=== PATIENT | female | born 1950 | race Hispanic/Latino ===

== ENCOUNTER 2017-12-28 22:43 | Inpatient (IN) | payer MEDICARE, OTHER ==
--- NOTE | 2017-12-28 23:13 | ED PDOC ---
Arrival/HPI - General Chief Complaint: Psychiatric Evaluation Time Seen by Provider: 12/28/17 22:53 Historian: Patient - History of Present Illness Narrative History of Present Illness (Text): 12/28/17 23:13 Falguni Thrasher is a 67 year old female who presents to the Emergency department brought in by EMS status post overdose. As per EMS, patient took approximately 15 tablets of Seroquel 25mg tonight. Patient admits to taking Seroquel tonight 1 hour ago, states she feels depressed. Patient denies any shortness of breath, chest pain, abdominal pain, or any other complaints. Symptom Onset: Gradual Symptom Course: Unchanged Activities at Onset: Light Context: Home Past Medical History - Provider Review Nursing Documentation Reviewed: Yes - Cardiac Hx Pacemaker: No - Neurological Hx Paralysis: No - Hematological/Oncological Hx Blood Transfusions: No Hx Blood Transfusion Reaction: No - Psychiatric Hx Anxiety: Yes Hx Emotional Abuse: No Hx Physical Abuse: No Hx Substance Use: No - Anesthesia Hx Anesthesia Reactions: No Hx Malignant Hyperthermia: No - Suicidal Assessment Feels Threatened In Home Enviroment: No Family/Social History - Physician Review Nursing Documentation Reviewed: Yes Family/Social History: Unknown Family HX Smoking Status: Never Smoked Hx Alcohol Use: Yes (SOCIAL) Frequency of alcohol use: Socially Hx Substance Use: No Allergies/Home Meds Allergies/Adverse Reactions: Allergies No Known Allergies Allergy (Verified 08/21/12 07:09) Home Medications: Home Meds Medication Instructions Recorded Confirmed Clonazepam [Klonopin] 1 mg PO DAILY 08/21/12 12/28/17 Review of Systems - Review of Systems Systems not reviewed;Unavailable: Altered Mental Status Psychiatric: Other (+overdose) Physical Exam Vital Signs Reviewed: Yes Vital Signs Temp Pulse Resp BP Pulse Ox 12/29/17 03:03 94 H 28 H 12/29/17 03:00 129 H 16 96 12/29/17 02:55 123 H 12/29/17 02:20 119 H 14 125/79 95 12/29/17 01:53 140 H 101/62 12/29/17 01:51 140 H 18 101/62 95 12/29/17 00:42 130 H 14 115/69 96 12/29/17 00:41 120 H 16 102/52 L 95 12/29/17 00:40 102 H 112/62 08/03/18 00:39 102 H 15 112/62 94 L 12/29/17 00:29 166 H 20 124/67 95 12/29/17 00:20 167 H 21 113/90 96 12/29/17 00:01 157 H 18 112/59 L 95 12/28/17 23:57 120 H 21 110/53 L 93 L 12/28/17 23:55 120 H 110/53 L 12/28/17 23:48 163 H 20 121/68 95 12/28/17 22:51 98 F 91 H 18 138/74 96 Temperature: Afebrile Blood Pressure: Normal Pulse: Regular Respiratory Rate: Normal Mental Status: Positive for: other (Drowsy but arousable) - Systems Exam Head: Present: Atraumatic, Normocephalic Pupils: Present: PERRL Extroacular Muscles: Present: EOMI Conjunctiva: Present: Normal Mouth: Present: Moist Mucous Membranes Neck: Present: Normal Range of Motion. No: MIDLINE TENDERNESS, Paraspinal Tenderness Respiratory/Chest: Present: Clear to Auscultation, Good Air Exchange. No: Respiratory Distress, Accessory Muscle Use Cardiovascular: Present: Regular Rate and Rhythm Abdomen: No: Tenderness, Distention, Peritoneal Signs Upper Extremity: Present: Normal Inspection. No: Cyanosis, Edema Lower Extremity: Present: Normal Inspection. No: Edema Neurological: Present: CN II-XII Intact Skin: Present: Warm, Dry, Normal Color. No: Rashes Psychiatric: No: Alert (Drowsy but arousable) Medical Decision Making ED Course and Treatment: 12/28/17 23:13 Impression: 67 year old female presents after taking 15 tablets of Seroquel. Plan: -- EKG -- Chest X-ray -- Labs, alcohol level, TSH, cardiac enzymes -- Urinalysis -- IV fluids -- Aspirin -- Reassess and disposition Prior Visits: Notes and results from previous visits were reviewed. Progress Notes: 12/28/17 23:47 Reviewed EKG, sinus tachycardia at 185 bpm. Short ME. Non-specific intraventricular block. ST/T wave changes in precordial leads. 12/29/17 00:[address] Rocha, customer records division supervisor, who is aware and agrees to evaluate pt for ICU admission. 12/29/17 00:03 Spoke with Poison Control, recommend symptomatic treatment. 12/29/17 00:17 Repeat EKG reviewed, sinus tachycardia at [address] depressions in V3-V6. 12/29/17 00:[address] Rocha, present in Emergency department to evaluate pt, states pt can be admitted to the ICU. 12/29/17 00:[address] Bahena, who is aware and agrees with plan. Accepts pt in to her service. Pt will be admitted to ICU for seroquel drug overdose. Request Dr. Light and Dr. Song on consult. 12/29/17 02:00 Chest X-ray reviewed, shows no acute processes. - Critical Care Critical Care Minutes: 30 minutes - Lab Interpretations Lab Results: 12/28/17 23:05 12/29/17 00:05 Lab Results 12/29/17 00:05: Sodium 143, Potassium 3.0 L, Chloride 105, Carbon Dioxide 26, Anion Gap 15, BUN 11, Creatinine 0.6 L, Est GFR ( Amer) > 60, Est GFR ( Non-Af Amer) > 60, Random Glucose 125 H, Calcium 9.4, Magnesium 2.2, Total Bilirubin 1.1, AST 26, ALT 22, Alkaline Phosphatase 71, Lactate Dehydrogenase 553, Total Creatine Kinase 172, Troponin I < 0.01, Total Protein 6.4, Albumin 4.0, Globulin 2.5, Albumin/Globulin Ratio 1.6 12/28/17 23:05: Free T4 1.02, TSH 3rd Generation 2.20 12/28/17 23:05: Alcohol, Quantitative 58 H 12/28/17 23:05: Salicylates < 1 L, Acetaminophen < 10.0 L 12/28/17 23:05: WBC 6.1, RBC 3.95, Hgb 12.3, Hct 36.2, MCV 91.6, MCH 31.1, MCHC 34.0, RDW 12.9, Plt Count 245, MPV 11.0, Gran % 64.5, Lymph % (Auto) 26.8, [place] % (Auto) 8.2 H, Eos % (Auto) 0.2 L, Baso % (Auto) 0.3, Gran # 3.93, Lymph # ( Auto) 1.6, [place] # (Auto) 0.5, Eos # (Auto) 0.0, Baso # (Auto) 0.02 I have reviewed the lab results: Yes - RAD Interpretation Radiology Orders: 12/28/17 23:14 CHEST PORTABLE [RAD] Stat Train Operations Manager: ED Physician - EKG Interpretation Interpreted by ED Physician: Yes Type: 12 lead EKG - Medication Orders Current Medication Orders: Enoxaparin Sodium (Lovenox) 40 mg SC DAILY [facility] PRN Reason: Protocol Last Admin: 12/31/17 10:45 Dose: 40 mg Subcutaneous Administrations Document 12/31/17 10:45 RA (Rec: 12/31/17 10:54 RA [facility] [place]) Injection Site MAR Injection Site Right Abdomen Charges for Administration # of Subcutaneous Administrations 1 Folic Acid (Folic Acid) 1 mg PO DAILY [facility] Last Admin: 12/31/17 10:42 Dose: 1 mg Lorazepam (Ativan) 1 mg IVP TID PRN; Protocol PRN Reason: anxiety/restlessness Last Admin: 12/31/17 22:45 Dose: 1 mg IVP Administration Document 12/31/17 22:45 MJ (Rec: 12/31/17 22:45 MJ [place] [id number]) Charges for Administration # of IVP Administrations 1 Behavioural Document 12/31/17 22:45 MJ (Rec: 12/31/17 22:45 MJ [place] [id number]) Maintenance Maintenance Dose No Nonmedicinal Nonmedicinal Interventions Redirect Therapeutic Communication Behavior Behavior for Medication: Anxiety Metoprolol Tartrate (Lopressor) 12.5 mg PO BRKDIN [facility] Last Admin: 12/31/17 17:58 Dose: 12.5 mg MAR Pulse and Blood Pressure Document 12/31/17 17:58 ID (Rec: 12/31/17 17:58 ID [place] [id number]) Pulse Pulse Rate (60-90) 78 Blood Pressure Blood Pressure (100/60-150/90) 153/84 Multivitamins (Thera Tab) 1 tab PO 0800 [facility] Last Admin: 12/31/17 08:14 Dose: 1 tab Pantoprazole Sodium (Protonix Ec Tab) 40 mg PO 0600 [facility] Last Admin: 12/31/17 06:02 Dose: 40 mg Thiamine HCl (Vitamin B1 Tab) 50 mg PO DAILY [facility] Last Admin: 12/31/17 10:42 Dose: 50 mg Discontinued Medications Aspirin (Aspirin) 325 mg PO ONCE STA Stop: 12/29/17 00:22 Last Admin: 12/29/17 02:00 Dose: 325 mg Chlordiazepoxide (Librium) 75 mg PO STAT STA PRN Reason: Protocol Stop: 12/29/17 05:00 Last Admin: 12/29/17 08:42 Dose: Not Given Non-Admin Reason: Patient Asleep Behavioural Document 12/29/17 08:42 ROLAND (Rec: 12/29/17 08:42 ROLAND [id number]) Nonmedicinal Comment ATIVAN ALREADY GIVEN-PT. ASLEEP. Diltiazem HCl (Cardizem) 10 mg IVP STAT STA Stop: 12/29/17 01:43 Last Admin: 12/29/17 01:53 Dose: 10 mg IVP Administration Document 12/29/17 01:53 JOFartun (Rec: 12/29/17 01:53 JOFartun [id number]) Charges for Administration # of IVP Administrations 1 MAR Pulse and Blood Pressure Document 12/29/17 01:53 JOL (Rec: 12/29/17 01:53 JOL [id number]) Pulse Pulse Rate (60-90) 140 Blood Pressure Blood Pressure (100/60-150/90) 101/62 Sodium Chloride (Sodium Chloride 0.9%) 500 mls @ 1,000 mls/hr IV .Q30M STA Stop: 12/28/17 23:43 Last Admin: 12/28/17 23:47 Dose: 1,000 mls/hr eMAR Start Stop Document 12/28/17 23:47 JOL (Rec: 12/28/17 23:48 JOL [id number]) Intravenous Solution Start Date 12/28/17 Start Time 23:45 End Date 12/29/17 End time 00:15 Total Infusion Time 30 Sodium Chloride (Sodium Chloride 0.9%) 1,000 mls @ 999 mls/hr IV .Q1H1M STA Stop: 12/29/17 01:14 Last Admin: 12/29/17 00:20 Dose: 999 mls/hr eMAR Start Stop Document 12/29/17 00:20 JOL (Rec: 12/29/17 01:55 JOL [id number]) Intravenous Solution Start Date 12/29/17 Start Time 00:20 End Date 12/29/17 End time 01:21 Total Infusion Time 61 diltiaZEM IVPB 100mg in NS (Cardizem 100mg In Ns) 100 mls @ 5 mls/hr IV .Q20H PRN; Protocol; 5 MG/HR PRN Reason: TITRATE PER MD ORDER Last Titration: 12/29/17 05:45 Dose: 0 mg/hr, 0 mls/hr MAR Pulse Rate Document 12/29/17 05:45 JZI (Rec: 12/29/17 08:41 JZI [email or web address]) Pulse Rate Pulse Rate (60-90) 61 Titration Intervention Document 12/29/17 05:45 JZI (Rec: 12/29/17 08:41 JZI [email or web address]) Titration Intake Titration Intake 20 Cumulative Intake 20 Cumulative Intake (Rx) 20 Waste Amount 0 Container Volume 80 Titration Dosing Titration Dose 0 IV Rate 0 Intake/Decrease Paused Cumulative Dose 20 Multivitamins/Vitamin C 10 ml/Thiamine HCl 100 mg/ Folic Acid 1 mg/ Sodium Chloride 1,011.2 mls @ 100 mls/hr IV .Q10H7M ONE Stop: 12/29/17 15:19 Last Admin: 12/29/17 05:42 Dose: 100 mls/hr eMAR Start Stop Document 12/29/17 05:42 JZI (Rec: 12/29/17 05:44 JZI [email or web address]) Intravenous Solution Start Date 12/29/17 Start Time 05:42 End Date 12/29/17 End time 17:42 Total Infusion Time 720 Potassium Chloride (Potassium Chloride 10 Meq/100 Ml) 10 meq in 100 mls @ 50 mls/hr IVPB Q2H [facility] Stop: 12/29/17 11:29 Last Admin: 12/29/17 10:10 Dose: 50 mls/hr eMAR Start Stop Document 12/29/17 10:10 GLI (Rec: 12/29/17 10:10 GLI [id number]) Intravenous Solution Start Date 12/29/17 Start Time 10:10 End Date 12/29/17 Lorazepam (Ativan) 1 mg IVP ONCE ONE PRN Reason: Protocol Stop: 12/29/17 04:55 Last Admin: 12/29/17 04:55 Dose: 1 mg IVP Administration Document 12/29/17 04:55 SUMANTH (Rec: 12/29/17 05:11 SUMANTH [id number]) Charges for Administration # of IVP Administrations 1 Behavioural Document 12/29/17 04:55 SUMANTH (Rec: 12/29/17 05:11 SUMANTH [id number]) Maintenance Maintenance Dose No Nonmedicinal Nonmedicinal Interventions Redirect Therapeutic Communication See nurse's notes Behavior Behavior for Medication: Anxiety Biting/Hitting/Throwing/ Kicking Continuous crying/screaming/ yelling Dangers to self/others Pulling IV lines/tubes/ catheter Re-Assess: Reassess Psych Meds Document 12/29/17 05:25 JDIGNA (Rec: 12/29/17 08:39 JZI [email or web address]) Reassess Psych Med Effective Metoprolol Tartrate (Lopressor) 5 mg IVP STAT STA Stop: 12/29/17 00:32 Last Admin: 12/29/17 00:40 Dose: 5 mg IVP Administration Document 12/29/17 00:40 JOL (Rec: 12/29/17 01:55 JOL [id number]) Charges for Administration # of IVP Administrations 1 MAR Pulse and Blood Pressure Document 12/29/17 00:40 JOL (Rec: 12/29/17 01:55 JOL [id number]) Pulse Pulse Rate (60-90) 102 Blood Pressure Blood Pressure (100/60-150/90) 112/62 Metoprolol Tartrate (Lopressor) 2.5 mg IVP Q6H [facility] Stop: 12/29/17 23:59 Last Admin: 12/29/17 21:27 Dose: MAR Pulse and Blood Pressure Document 12/29/17 21:27 PD (Rec: 12/29/17 21:27 PD [id number]) Pulse Pulse Rate (60-90) 63 Blood Pressure Blood Pressure (100/60-150/90) 114/65 Potassium Chloride (K-Dur 20 Meq Er Tab) 40 meq PO STAT STA Stop: 12/29/17 00:34 Last Admin: 12/29/17 02:00 Dose: 40 meq Potassium Chloride (Potassium Chloride Oral Soln) 40 meq PO STAT STA Stop: 12/29/17 07:26 Potassium Chloride (Potassium Chloride Oral Soln) 40 meq PO STAT STA Stop: 12/29/17 07:26 Last Admin: 12/29/17 08:48 Dose: 40 meq - Scribe Statement The provider has reviewed the documentation as recorded by the Scribe Urvashi Jimenezzon All medical record entries made by the Scribcristiana were at my direction and personally dictated by me. I have reviewed the chart and agree that the record accurately reflects my personal performance of the history, physical exam, medical decision making, and the department course for this patient. I have also personally directed, reviewed, and agree with the discharge instructions and disposition. Disposition/Present on Arrival - Present on Arrival Any Indicators Present on Arrival: No History of DVT/PE: No History of Uncontrolled Diabetes: No Urinary Catheter: No History of Decub. Ulcer: No History Surgical Site Infection Following: None - Disposition Have Diagnosis and Disposition been Completed?: Yes Diagnosis: Drug overdose, Tachycardia Disposition: HOSPITALIZED Disposition Time: 00:40 Patient Plan: Admission Patient Problems: Current Active Problems Problem Status Onset Drug overdose Acute Tachycardia Acute Condition: GUARDED
[2017-12-28] MEDS ORDERED: Sodium Chloride 0.9% 500 ML IV STA (23:14)
[2017-12-28 23:49] LABS: BASO # 0.02 K/mm3 (0.0-2.0); BASO % 0.3 % (0.0-3.0); EOS % 0.2 % (1.5-5.0); GRAN # 3.93 (1.4-6.5); GRAN % 64.5 % (50.0-68.0); HEMOGLOBIN 12.3 g/dL (12.0-16.0); LYMPH # 1.6 (1.2-3.4); LYMPH % 26.8 % (22.0-35.0); MEAN CELL VOLUME 91.6 fl (80.0-105.0); MEAN CORPUSCULAR HEMOGLOBIN 31.1 pg (25.0-35.0); MONO # 0.5 (0.1-0.6); MONO % 8.2 % (1.0-6.0); RBC 3.95 10^6/uL (3.5-6.1); RED CELL DISTRIBUTION WIDTH 12.9 % (11.5-14.5); WHITE BLOOD COUNT 6.1 10^3/ul (4.5-11.0)
[2017-12-28 23:57] LABS: ACETAMINOPHEN < 10.0 ug/ml (10.0-20.0); SALICYLATE < 1 mg/dL (2.0-20.0)
[2017-12-29] MEDS ORDERED: Sodium Chloride 0.9% 1,000 ML IV STA (00:14)
[2017-12-29 00:28] LABS: ALB/GLOB RATIO 1.6 (1.1-1.8); ALT/SGPT 22 U/L (7-56); AST/SGOT 26 U/L (14-36); BLOOD UREA NITROGEN 11 mg/dL (7-21); CALCIUM 9.4 mg/dL (8.4-10.5); GFR AFRICAN-AMERICAN > 60; GFR NON-AFRICAN AMERICAN > 60
[2017-12-29] MEDS ORDERED: Metoprolol 1 mg/ml Inj IVP STA (00:31)
[2017-12-29] MEDS ORDERED: Potassium Chloride 20 mEq ER Tab PO STA (00:33)
[2017-12-29 00:57] LABS: URINE BILIRUBIN NEGATIVE (NEGATIVE); URINE BLOOD NEGATIVE (NEGATIVE); URINE GLUCOSE (UA) NEGATIVE (NEGATIVE); URINE LEUKOCYTE ESTERASE SMALL Leu/uL (NEGATIVE); URINE PROTEIN NEGATIVE mg/dL (<30 mg/dL); URINE UROBILINOGEN 0.2 E.U./dL (<1 E.U./dL)
[2017-12-29 01:01] LABS: URINE APPEARANCE CLEAR (CLEAR); URINE COLOR YELLOW (YELLOW)
[2017-12-29 01:04] LABS: FREE T4 1.02 ng/dL (0.78-2.19)
[2017-12-29 01:09] LABS: URINE RBC 0 - 2 /hpf (0-2)
[2017-12-29 01:10] LABS: URINE BACTERIA RARE (NEG)
[2017-12-29 01:13] LABS: TROPONIN I < 0.01 ng/mL
[2017-12-29] MEDS ORDERED: diltiaZEM IVPB 100mg in NS 100 ML IV PRN (01:42)
[2017-12-29 01:48] LABS: BENZODIAZEPINES, UR NEGATIVE (NEGATIVE)
[2017-12-29 02:01] LABS: BARBITURATES, UR NEGATIVE (NEGATIVE); OPIATES, UR NEGATIVE (NEGATIVE); PHENCYCLIDINE, UR NEGATIVE (NEGATIVE)
--- NOTE | 2017-12-29 02:27 | CP.PCM.CON ---
<Alvaro Howell - Last Filed: 12/29/17 02:14> History of Present Illness - History of Present Illness History of Present Illness: Alvaro Howell D.O. PGY2-Internal Medicine ICU CONSULT NOTE CC: Seroquel Overdose HPI: Ms. 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 Patient is predominantly non -verbal and written conversation was used to obtain HPI information. Patient is alert and oriented to person, place and time. She reports that she has been feeling depressed and that she took the Seroquel in an attempt to take her life. She also endorses that she took them with a small amount of alcohol. She reports that the Seroquel that she took belonged to a family member. She admits to suffering from anxiety for which she has been on medications for in the past. She denies taking any other pills or substances tonight. She denies any fever, chills, headache, chest pain, palpitations, SOB, cough, wheezing, abdominal pain, N/V/D/C, changes in urine output, skin changes, or any numbness/ tingling/weakness of any extremity. PMH: Anxiety PSH: Right Jaw Surgery s/p trauma Family History: Brother: Unspecified cancer; Mother: CAD Social History: Denies any tobacco abuse, drinks alcohol socially and denies any illicit drug use Allergies: NKDA Home Medications: As per MAR Review of Systems - Review of Systems Review of Systems: As stated in HPI, otherwise negative Past Patient History - Infectious Disease Hx of Infectious Diseases: None - Tetanus Immunizations Tetanus Immunization: Unknown - Past Social History Smoking Status: Never Smoked - CARDIAC Hx Pacemaker: No - NEUROLOGICAL Hx Paralysis: No - HEMATOLOGICAL/ONCOLOGICAL Hx Blood Transfusions: No Hx Blood Transfusion Reaction: No - PSYCHIATRIC Hx Anxiety: Yes Hx Emotional Abuse: No Hx Physical Abuse: No Hx Substance Use: No - SURGICAL HISTORY Hx Surgeries: Yes (R EYE AND JAW R/T TRAUMA) - ANESTHESIA Hx Anesthesia Reactions: No Hx Malignant Hyperthermia: No Meds Allergies/Adverse Reactions: Allergies Allergy/AdvReac Type Severity Reaction Status Date / Time No Known Allergies Allergy Verified 08/21/12 07:09 - Medications Medications: Current Medications Enoxaparin Sodium (Lovenox) 40 mg SC DAILY [facility] PRN Reason: Protocol diltiaZEM IVPB 100mg in NS (Cardizem 100mg In Ns) 100 mls @ 5 mls/hr IV .Q20H PRN; Protocol; 5 MG/HR PRN Reason: TITRATE PER MD ORDER Last Admin: 12/29/17 02:12 Dose: 5 mg/hr, 5 mls/hr Pantoprazole Sodium (Protonix Ec Tab) 40 mg PO 0600 [facility] Physical Exam - Constitutional Appears: Non-toxic, No Acute Distress - Head Exam Head Exam: ATRAUMATIC, NORMOCEPHALIC - Eye Exam Eye Exam: EOMI, Normal appearance - ENT Exam ENT Exam: Mucous Membranes Moist, Normal Exam - Neck Exam Neck exam: Positive for: Full Rom. Negative for: Lymphadenopathy - Respiratory Exam Respiratory Exam: Clear to Auscultation Bilateral, NORMAL BREATHING PATTERN. absent: Accessory Muscle Use, Chest Wall Tenderness, Decreased Breath Sounds, Prolonged Expiratory Phase, Rales, Rhonchi, Wheezes, Respiratory Distress, Stridor - Cardiovascular Exam Cardiovascular Exam: Tachycardia, REGULAR RHYTHM, +S1, +S2. absent: Bradycardia , Clicks, Diastolic murmur, Gallop, Irregular Rhythm, JVD, RRR, Rubs, +S4, Systolic Murmur - GI/Abdominal Exam GI & Abdominal Exam: Normal Bowel Sounds, Soft. absent: Tenderness - Extremities Exam Extremities exam: Positive for: full ROM, normal capillary refill, normal inspection, pedal pulses present. Negative for: calf tenderness, joint swelling , pedal edema, tenderness - Neurological Exam Neurological exam: Alert, Oriented x3 - Psychiatric Exam Psychiatric exam: Depressed Additional comments: Notes SI earlier tonight but not currently - Skin Skin Exam: Dry, Intact, Normal Color, Warm Results - Vital Signs Recent Vital Signs: Last Vital Signs Temp 98 F 12/28/17 22:51 Pulse 140 H 12/29/17 01:53 Resp 18 12/29/17 01:51 BP 101/62 12/29/17 01:53 Pulse Ox 95 12/29/17 01:51 - Labs Result Diagrams: 12/28/17 23:05 12/29/17 00:05 Labs: Laboratory Results - last 24 hr 12/29/17 12/29/17 00:41 01:15 Urine Color Yellow Urine Appearance Clear Urine pH 6.0 Ur Specific [place] 1.010 Urine Protein Negative Urine Glucose (UA) Negative Urine Ketones Negative Urine Blood Negative Urine Nitrate Negative Urine Bilirubin Negative Urine Urobilinogen 0.2 Ur Leukocyte Esterase Small H Urine RBC 0 - 2 Urine WBC 1 - 3 Ur Epithelial Cells 3 - 4 Urine Bacteria Rare Urine Opiates Screen Negative Urine Methadone Screen Negative Ur Barbiturates Screen Negative Ur Phencyclidine Scrn Negative Ur Amphetamines Screen Negative U Benzodiazepines Scrn Negative U Oth Cocaine Metabols Negative U Cannabinoids Screen Negative Assessment & Plan - Assessment and Plan (Free Text) Assessment: 67 year old female with a past medical history significant for anxiety who presents after taking approximately 15 tablets of Seroquel 25mg in an 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 Patient will be taken to the ICU for management of tachycardia being treated with a cardizem drip. Plan: 1. Tachycardia -Chest X-Ray showed no active disease -EKG showed sinus tachycardia at 113 beats/min and ST depressions in V3-V6 -Cardizem drip -Cardiology consulted, all recommendations appreciated 2. Seroquel Overdose -Poison control notified by ED staff and recommended symptomatic treatment 3. Suicidal Ideation -1:1 Observation -Psych consulted, all recommendations appreciated GI Prophylaxis: Protonix DVT Prophylaxis: Lovenox Diet: Heart Healthy Patient seen and case discussed with attending, Dr. Rocha. Kyle PGY2 - Date & Time Date: 12/29/17 Time: 03:14 <Soo Rocha - Last Filed: 12/29/17 05:57> Meds - Medications Medications: Current Medications Enoxaparin Sodium (Lovenox) 40 mg SC DAILY [facility] PRN Reason: Protocol Folic Acid (Folic Acid) 1 mg PO DAILY [facility] diltiaZEM IVPB 100mg in NS (Cardizem 100mg In Ns) 100 mls @ 5 mls/hr IV .Q20H PRN; Protocol; 5 MG/HR PRN Reason: TITRATE PER MD ORDER Last Admin: 12/29/17 02:12 Dose: 5 mg/hr, 5 mls/hr Multivitamins/Vitamin C 10 ml/Thiamine HCl 100 mg/ Folic Acid 1 mg/ Sodium Chloride 1,011.2 mls @ 100 mls/hr IV .Q10H7M ONE Stop: 12/29/17 15:19 Multivitamins (Thera Tab) 1 tab PO 0800 [facility] Pantoprazole Sodium (Protonix Ec Tab) 40 mg PO 0600 [facility] Thiamine HCl (Vitamin B1 Tab) 50 mg PO DAILY [facility] Results - Vital Signs Recent Vital Signs: Last Vital Signs Temp 99.4 F 12/29/17 03:30 Pulse 61 12/29/17 05:30 Resp 22 12/29/17 05:30 BP 94/54 L 12/29/17 05:30 Pulse Ox 98 12/29/17 05:30 - Labs Result Diagrams: 12/29/17 05:00 12/29/17 00:05 Labs: Laboratory Results - last 24 hr 12/29/17 12/29/17 12/29/17 00:41 01:15 05:00 WBC 5.7 RBC 3.84 Hgb 11.9 L Hct 35.3 L MCV 91.9 MCH 31.0 MCHC 33.7 RDW 13.0 Plt Count 213 MPV 10.4 Gran % 61.3 Lymph % (Auto) 29.7 [place] % (Auto) 8.1 H Eos % (Auto) 0.4 L Baso % (Auto) 0.5 Gran # 3.46 Lymph # (Auto) 1.7 [place] # (Auto) 0.5 Eos # (Auto) 0.0 Baso # (Auto) 0.03 Urine Color Yellow Urine Appearance Clear Urine pH 6.0 Ur Specific [place] 1.010 Urine Protein Negative Urine Glucose (UA) Negative Urine Ketones Negative Urine Blood Negative Urine Nitrate Negative Urine Bilirubin Negative Urine Urobilinogen 0.2 Ur Leukocyte Esterase Small H Urine RBC 0 - 2 Urine WBC 1 - 3 Ur Epithelial Cells 3 - 4 Urine Bacteria Rare Urine Opiates Screen Negative Urine Methadone Screen Negative Ur Barbiturates Screen Negative Ur Phencyclidine Scrn Negative Ur Amphetamines Screen Negative U Benzodiazepines Scrn Negative U Oth Cocaine Metabols Negative U Cannabinoids Screen Negative Attending/Attestation - Attestation I have personally seen and examined this patient.: Yes I have fully participated in the care of the patient.: Yes I have reviewed all pertinent clinical information: Yes Notes (Text): 12/29/17 05:52 Patient was seen when she was in bed # 6 in the ER. Agree with consult note. Patient states that she took her father's seroquels to kill herself with sips of alcohol. Will place on CIWA protocol, banana bag, Ativan IV prn. Patient was screaming, agitated in the CCU. Ativan 1 mg IV x 2 , Librium 75 mg PO was ordered. Will repeat EKG in the AM.
[2017-12-29] MEDS ORDERED: Multivitamin (MVI) 10 ML, Thiamine 100 MG, Folic Acid 1 MG in Sodium Chloride 0.9% 1,00... IV ONE (05:13)
[2017-12-29 05:35] LABS: RBC 3.84 10^6/uL (3.5-6.1); WHITE BLOOD COUNT 5.7 10^3/ul (4.5-11.0)
[2017-12-29 05:36] LABS: BASO # 0.03 K/mm3 (0.0-2.0); BASO % 0.5 % (0.0-3.0); EOS % 0.4 % (1.5-5.0); GRAN # 3.46 (1.4-6.5); GRAN % 61.3 % (50.0-68.0); HEMOGLOBIN 11.9 g/dL (12.0-16.0); LYMPH # 1.7 (1.2-3.4); LYMPH % 29.7 % (22.0-35.0); MEAN CELL VOLUME 91.9 fl (80.0-105.0); MEAN CORPUSCULAR HGB CONC 33.7 g/dl (31.0-37.0); MEAN PLATELET VOLUME 10.4 fl (7.0-11.0); MONO # 0.5 (0.1-0.6); MONO % 8.1 % (1.0-6.0)
[2017-12-29] MEDS: Pantoprazole 40 mg EC Tab PO SCH (05:45)
[2017-12-29 06:44] VITALS: BMI 26.2
[2017-12-29 07:14] LABS: ALB/GLOB RATIO 1.5 (1.1-1.8); ALBUMIN 3.9 g/dL (3.0-4.8); ALT/SGPT 26 U/L (7-56); AST/SGOT 25 U/L (14-36); BLOOD UREA NITROGEN 8 mg/dL (7-21); CALCIUM 8.9 mg/dL (8.4-10.5); GFR AFRICAN-AMERICAN > 60; GFR NON-AFRICAN AMERICAN > 60
[2017-12-29] MEDS ORDERED: Potassium Chloride 40 mEq/30 ml LIQ UD PO STA ×2 (07:25)
--- NOTE | 2017-12-29 08:05 | RAD ---
Date of service: 12/29/2017 HISTORY: overdose COMPARISON: No prior. FINDINGS: LUNGS: No active pulmonary disease. PLEURA: No significant pleural effusion identified, no pneumothorax apparent. CARDIOVASCULAR: Normal. OSSEOUS STRUCTURES: No significant abnormalities. VISUALIZED UPPER ABDOMEN: Normal. OTHER FINDINGS: None. IMPRESSION: No active disease.
--- NOTE | 2017-12-29 09:19 | CARD ---
APPROVED REPORT Date of service: 12/29/2017 EKG Measurement Heart [id number] <Conclusion> Sinus tachycardia Possible Left atrial enlargement ST depression, consider subendocardial injury Abnormal ECG
--- NOTE | 2017-12-29 09:21 | CARD ---
APPROVED REPORT Date of service: 12/28/2017 EKG Measurement Heart [id number] <Conclusion> Supraventricular tachycardia Secondary ST-T changes Nonspecific intraventricular block Abnormal ECG
--- NOTE | 2017-12-29 09:24 | CARD ---
APPROVED REPORT Date of service: 12/29/2017 EKG Measurement Heart [id number] <Conclusion> Normal sinus rhythm Nonspecific ST-T abnormality Abnormal ECG
[2017-12-29] MEDS: Metoprolol 1 mg/ml Inj IVP SCH ×3 (10:03→21:27)
[2017-12-29] MEDS: Enoxaparin 40 mg Syringe SC SCH (10:04)
--- NOTE | 2017-12-29 12:55 | CP.CCUPN ---
<Anne MarieDea tapiajennie - Last Filed: 12/29/17 14:07> CCU Subjective - Physician Review Events Since Last Encounter (Free Text): Maura Poe, PGY-1 ICU progress note Patient seen and examined at bedside. No acute events overnights. Vitals are improved. Patient is still altered and mumbles responses to questions. ROS is limited due to altered state but patient denies any pain or complaints at this time. Denies CP, SOB, abdominal pain, headaches and urinary complaints. 12 point ROS reviewed and stated here, otherwise negative. CCU Objective - Vital Signs / Intake & Output Vital Signs (Last 4 hours): Vital Signs Pulse Resp BP Pulse Ox 12/29/17 10:10 61 15 100 12/29/17 10:03 62 114/67 12/29/17 10:00 64 22 114/61 100 12/29/17 09:50 67 24 99 12/29/17 09:40 66 16 98 12/29/17 09:30 79 24 96 12/29/17 09:20 82 24 98 12/29/17 09:10 81 38 H 99 12/29/17 09:01 77 19 122/69 97 12/29/17 09:00 75 98 12/29/17 08:50 66 17 99 Intake and Output (Last 8hrs): Intake & Output 12/28/17 12/29/17 12/29/17 22:59 06:59 14:59 Intake Total 3520 Output Total 300 Balance 3220 Weight 143 lb 6.4 oz Intake: IV 3520 Left Antecubital 0 Right Wrist 3500 Oral 0 Output: Urine 300 Urine, Voided 300 Other: # Bowel Movements 0 - Physical Exam Head: Positive for: Atraumatic, Normocephalic Pupils: Positive for: PERRL Extroacular Muscles: Positive for: EOMI Conjunctiva: Positive for: Normal Mouth: Positive for: Moist Mucous Membranes Neck: Positive for: Normal Range of Motion. Negative for: MIDLINE TENDERNESS, Paraspinal Tenderness Respiratory/Chest: Positive for: Clear to Auscultation, Good Air Exchange. Negative for: Respiratory Distress, Accessory Muscle Use Cardiovascular: Positive for: Regular Rate and Rhythm Abdomen: Positive for: Normal Bowel Sounds. Negative for: Tenderness, Distention, Peritoneal Signs Upper Extremity: Positive for: Normal Inspection. Negative for: Cyanosis, Edema Lower Extremity: Positive for: Normal Inspection. Negative for: Edema Neurological: Positive for: CN II-XII Intact Skin: Positive for: Warm, Dry, Normal Color. Negative for: Rashes Psychiatric: Negative for: Alert (patient is alert and oriented to person and place) - Medications Active Medications: Active Medications Generic Name Dose Route Start Last Admin Trade Name Freq PRN Reason Stop Dose Admin Enoxaparin Sodium 40 mg 12/29/17 10:00 12/29/17 10:04 Lovenox SC 40 mg DAILY CHUCK Administration Protocol Folic Acid 1 mg 12/30/17 10:00 Folic Acid PO DAILY CHUCK Multivitamins/Vitamin C 10 ml/ 1,011.2 mls @ 100 mls/hr 12/29/17 05:13 05:42 Thiamine HCl 100 mg/ Folic IV 12/29/17 15:19 100 mls/hr Acid 1 mg/ Sodium Chloride .Q10H7M ONE Administration Lorazepam 1 mg 12/29/17 10:37 Ativan IVP TID PRN anxiety/restlessness Protocol Metoprolol Tartrate 2.5 mg 12/29/17 09:30 12/29/17 10:03 Lopressor IVP 12/29/17 23:59 Not Given Q6H CHUCK Metoprolol Tartrate 12.5 mg 12/30/17 07:30 Lopressor PO BRKDIN [facility] Multivitamins 1 tab 12/30/17 08:00 Thera Tab PO 0800 [facility] Pantoprazole Sodium 40 mg 12/29/17 06:00 12/29/17 05:45 Protonix Ec Tab PO Not Given 0600 [facility] Thiamine HCl 50 mg 12/30/17 10:00 Vitamin B1 Tab PO DAILY [facility] - Patient Studies Lab Studies: Lab Studies 12/29/17 12/29/17 12/29/17 Range/Units 05:30 05:00 05:00 WBC 5.7 (4.5-11.0) 10^3/ul RBC 3.84 (3.5-6.1) 10^6/uL Hgb 11.9 L (12.0-16.0) g/dL Hct 35.3 L (36.0-48.0) % MCV 91.9 (80.0-105.0) fl MCH 31.0 (25.0-35.0) pg MCHC 33.7 (31.0-37.0) g/dl RDW 13.0 (11.5-14.5) % Plt Count 213 (120.0-450.0) 10^3/uL MPV 10.4 (7.0-11.0) fl Gran % 61.3 (50.0-68.0) % Lymph % (Auto) 29.7 (22.0-35.0) % Marion % (Auto) 8.1 H (1.0-6.0) % Eos % (Auto) 0.4 L (1.5-5.0) % Baso % (Auto) 0.5 (0.0-3.0) % Gran # 3.46 (1.4-6.5) Lymph # (Auto) 1.7 (1.2-3.4) Marion # (Auto) 0.5 (0.1-0.6) Eos # (Auto) 0.0 (0.0-0.7) Baso # (Auto) 0.03 (0.0-2.0) K/mm3 Sodium 147 (132-148) mmol/L Potassium 2.9 L* (3.6-5.0) mmol/L Chloride 111 H (98-107) mmol/L Carbon Dioxide 26 (21-33) mmol/L Anion Gap 13 (10-20) BUN 8 (7-21) mg/dL Creatinine 0.6 L (0.7-1.2) mg/dl Est GFR ( Amer) > 60 Est GFR (Non-Af Amer) > 60 Random Glucose 137 H (70-110) mg/dL Calcium 8.9 (8.4-10.5) mg/dL Phosphorus 3.2 (2.5-4.5) mg/dL Magnesium 2.1 (1.7-2.2) mg/dL Total Bilirubin 1.0 (0.2-1.3) mg/dL AST 25 (14-36) U/L ALT 26 (7-56) U/L Alkaline Phosphatase 72 (38-126) U/L Total Protein 6.5 (5.8-8.3) g/dL Albumin 3.9 (3.0-4.8) g/dL Globulin 2.6 gm/dL Albumin/Globulin Ratio 1.5 (1.1-1.8) Urine Color (YELLOW) Urine Appearance (CLEAR) Urine pH (4.7-8.0) Ur Specific Whately (1.005-1.035) Urine Protein (<30 mg/dL) mg/dL Urine Glucose (UA) (NEGATIVE) mg/dL Urine Ketones (NEGATIVE) mg/dL Urine Blood (NEGATIVE) Urine Nitrate (NEGATIVE) Urine Bilirubin (NEGATIVE) Urine Urobilinogen (<1 E.U./dL) E.U./dL Ur Leukocyte Esterase (NEGATIVE) Jt/uL Urine RBC (0-2) /hpf Urine WBC (0-6) /hpf Ur Epithelial Cells (0-5) /hpf Urine Bacteria (NEG) Urine Opiates Screen (NEGATIVE) Urine Methadone Screen (NEGATIVE) Ur Barbiturates Screen (NEGATIVE) Ur Phencyclidine Scrn (NEGATIVE) Ur Amphetamines Screen (NEGATIVE) U Benzodiazepines Scrn (NEGATIVE) U Oth Cocaine Metabols (NEGATIVE) U Cannabinoids Screen (NEGATIVE) 12/29/17 12/29/17 Range/Units 01:15 00:41 WBC (4.5-11.0) 10^3/ul RBC (3.5-6.1) 10^6/uL Hgb (12.0-16.0) g/dL Hct (36.0-48.0) % MCV (80.0-105.0) fl MCH (25.0-35.0) pg MCHC (31.0-37.0) g/dl RDW (11.5-14.5) % Plt Count (120.0-450.0) 10^3/uL MPV (7.0-11.0) fl Gran % (50.0-68.0) % Lymph % (Auto) (22.0-35.0) % Marion % (Auto) (1.0-6.0) % Eos % (Auto) (1.5-5.0) % Baso % (Auto) (0.0-3.0) % Gran # (1.4-6.5) Lymph # (Auto) (1.2-3.4) Marion # (Auto) (0.1-0.6) Eos # (Auto) (0.0-0.7) Baso # (Auto) (0.0-2.0) K/mm3 Sodium (132-148) mmol/L Potassium (3.6-5.0) mmol/L Chloride (98-107) mmol/L Carbon Dioxide (21-33) mmol/L Anion Gap (10-20) BUN (7-21) mg/dL Creatinine (0.7-1.2) mg/dl Est GFR ( Amer) Est GFR (Non-Af Amer) Random Glucose (70-110) mg/dL Calcium (8.4-10.5) mg/dL Phosphorus (2.5-4.5) mg/dL Magnesium (1.7-2.2) mg/dL Total Bilirubin (0.2-1.3) mg/dL AST (14-36) U/L ALT (7-56) U/L Alkaline Phosphatase (38-126) U/L Total Protein (5.8-8.3) g/dL Albumin (3.0-4.8) g/dL Globulin gm/dL Albumin/Globulin Ratio (1.1-1.8) Urine Color Yellow (YELLOW) Urine Appearance Clear (CLEAR) Urine pH 6.0 (4.7-8.0) Ur Specific Whately 1.010 (1.005-1.035) Urine Protein Negative (<30 mg/dL) mg/dL Urine Glucose (UA) Negative (NEGATIVE) mg/dL Urine Ketones Negative (NEGATIVE) mg/dL Urine Blood Negative (NEGATIVE) Urine Nitrate Negative (NEGATIVE) Urine Bilirubin Negative (NEGATIVE) Urine Urobilinogen 0.2 (<1 E.U./dL) E.U./dL Ur Leukocyte Esterase Small H (NEGATIVE) Jt/uL Urine RBC 0 - 2 (0-2) /hpf Urine WBC 1 - 3 (0-6) /hpf Ur Epithelial Cells 3 - 4 (0-5) /hpf Urine Bacteria Rare (NEG) Urine Opiates Screen Negative (NEGATIVE) Urine Methadone Screen Negative (NEGATIVE) Ur Barbiturates Screen Negative (NEGATIVE) Ur Phencyclidine Scrn Negative (NEGATIVE) Ur Amphetamines Screen Negative (NEGATIVE) U Benzodiazepines Scrn Negative (NEGATIVE) U Oth Cocaine Metabols Negative (NEGATIVE) U Cannabinoids Screen Negative (NEGATIVE) Laboratory Results - last 24 hr 12/29/17 12/29/17 12/29/17 00:41 01:15 05:00 WBC 5.7 RBC 3.84 Hgb 11.9 L Hct 35.3 L MCV 91.9 MCH 31.0 MCHC 33.7 RDW 13.0 Plt Count 213 MPV 10.4 Gran % 61.3 Lymph % (Auto) 29.7 Marion % (Auto) 8.1 H Eos % (Auto) 0.4 L Baso % (Auto) 0.5 Gran # 3.46 Lymph # (Auto) 1.7 Marion # (Auto) 0.5 Eos # (Auto) 0.0 Baso # (Auto) 0.03 Sodium Potassium Chloride Carbon Dioxide Anion Gap BUN Creatinine Est GFR ( Amer) Est GFR (Non-Af Amer) Random Glucose Calcium Phosphorus Magnesium Total Bilirubin AST ALT Alkaline Phosphatase Total Protein Albumin Globulin Albumin/Globulin Ratio Urine Color Yellow Urine Appearance Clear Urine pH 6.0 Ur Specific Whately 1.010 Urine Protein Negative Urine Glucose (UA) Negative Urine Ketones Negative Urine Blood Negative Urine Nitrate Negative Urine Bilirubin Negative Urine Urobilinogen 0.2 Ur Leukocyte Esterase Small H Urine RBC 0 - 2 Urine WBC 1 - 3 Ur Epithelial Cells 3 - 4 Urine Bacteria Rare Urine Opiates Screen Negative Urine Methadone Screen Negative Ur Barbiturates Screen Negative Ur Phencyclidine Scrn Negative Ur Amphetamines Screen Negative U Benzodiazepines Scrn Negative U Oth Cocaine Metabols Negative U Cannabinoids Screen Negative 12/29/17 12/29/17 05:00 05:30 WBC RBC Hgb Hct MCV MCH MCHC RDW Plt Count MPV Gran % Lymph % (Auto) Marion % (Auto) Eos % (Auto) Baso % (Auto) Gran # Lymph # (Auto) Marion # (Auto) Eos # (Auto) Baso # (Auto) Sodium 147 Potassium 2.9 L* Chloride 111 H Carbon Dioxide 26 Anion Gap 13 BUN 8 Creatinine 0.6 L Est GFR ( Amer) > 60 Est GFR (Non-Af Amer) > 60 Random Glucose 137 H Calcium 8.9 Phosphorus 3.2 Magnesium 2.1 Total Bilirubin 1.0 AST 25 ALT 26 Alkaline Phosphatase 72 Total Protein 6.5 Albumin 3.9 Globulin 2.6 Albumin/Globulin Ratio 1.5 Urine Color Urine Appearance Urine pH Ur Specific Whately Urine Protein Urine Glucose (UA) Urine Ketones Urine Blood Urine Nitrate Urine Bilirubin Urine Urobilinogen Ur Leukocyte Esterase Urine RBC Urine WBC Ur Epithelial Cells Urine Bacteria Urine Opiates Screen Urine Methadone Screen Ur Barbiturates Screen Ur Phencyclidine Scrn Ur Amphetamines Screen U Benzodiazepines Scrn U Oth Cocaine Metabols U Cannabinoids Screen EKG/Cardiology Studies: Cardiology / EKG Studies 12/29/17 00:16 ELECTROCARDIOGRAM Stat Comment: Reason For Exam: OVERDOSE PRE OP:: N Does Patient Have a Pacemaker?: No 12/29/17 07:00 EKG [ELECTROCARDIOGRAM] Q6H Comment: Reason For Exam: monitor qt, seroquel overdose 12/29/17 11:30 EKG [ELECTROCARDIOGRAM] Routine Comment: Reason For Exam: seroquel overdose 12/29/17 13:00 EKG [ELECTROCARDIOGRAM] Q6H Comment: Reason For Exam: monitor qt, seroquel overdose 12/29/17 16:00 EKG [ELECTROCARDIOGRAM] Routine Comment: Reason For Exam: QTc Ival Critical Care Progress Note - Nutrition Nutrition: Nutrition Category Date Time Status Heart Healthy Diet [DIET] Diets 12/29/17 Breakfast Active Assessment/Plan - Assessment and Plan (Free Text) Plan: Assessment: This is a 67 year old female with PMH significant for anxiety presenting to the ICU for management for seroquel overdose and resolved tachycardia. Plan: Neuro: -MRI head pending -maintain normothermia -neurology consulted, appreciate recommendations Lungs: -maintain SaO2>90 -chest xray showed no active disease Cardio: -maintain MAP>65 -metoprolol per cardiology -echo pending -diltiazem drip discontinued overnight -EKG this morning at 11am showed HR of 69bpm, QRS of 82ms, QT of 392ms, and normal sinus rhythm. -Spoke with Bakrai at poison control who recommended supportive care -cardiology consult, appreciate recommendations Psych: -psych is consulted, appreciate recommendations Nephro: -maintain euvolemia, avoid hypochloremia -potassium repleted this morning GI: -heart healthy diet -pantoprazole prophylaxis Heme: -prophylaxis lovenox ID: -afebrile -urine culture and MRSA culture pending Endo: -maintain euglycemia <Michael Hurtado - Last Filed: 12/29/17 14:39> CCU Objective - Vital Signs / Intake & Output Vital Signs (Last 4 hours): Vital Signs Temp 12/29/17 12:00 97.8 F Intake and Output (Last 8hrs): Intake & Output 12/28/17 12/29/17 12/29/17 22:59 06:59 14:59 Intake Total 3520 Output Total 300 Balance 3220 Weight 143 lb 6.4 oz Intake: IV 3520 Left Antecubital 0 Right Wrist 3500 Oral 0 Output: Urine 300 Urine, Voided 300 Other: # Bowel Movements 0 - Medications Active Medications: Active Medications Generic Name Dose Route Start Last Admin Trade Name Freq PRN Reason Stop Dose Admin Enoxaparin Sodium 40 mg 12/29/17 10:00 12/29/17 10:04 Lovenox SC 40 mg DAILY CHUCK Administration Protocol Folic Acid 1 mg 12/30/17 10:00 Folic Acid PO DAILY [facility] Multivitamins/Vitamin C 10 ml/ 1,011.2 mls @ 100 mls/hr 12/29/17 05:13 05:42 Thiamine HCl 100 mg/ Folic IV 12/29/17 15:19 100 mls/hr Acid 1 mg/ Sodium Chloride .Q10H7M ONE Administration Lorazepam 1 mg 12/29/17 10:37 Ativan IVP TID PRN anxiety/restlessness Protocol Metoprolol Tartrate 2.5 mg 12/29/17 09:30 12/29/17 10:03 Lopressor IVP 12/29/17 23:59 Not Given Q6H CHUCK Metoprolol Tartrate 12.5 mg 12/30/17 07:30 Lopressor PO BRKDIN [facility] Multivitamins 1 tab 12/30/17 08:00 Thera Tab PO 0800 [facility] Pantoprazole Sodium 40 mg 12/29/17 06:00 12/29/17 05:45 Protonix Ec Tab PO Not Given 0600 [facility] Thiamine HCl 50 mg 12/30/17 10:00 Vitamin B1 Tab PO DAILY [facility] - Patient Studies Lab Studies: Lab Studies 12/29/17 12/29/17 12/29/17 Range/Units 13:00 05:30 05:00 WBC (4.5-11.0) 10^3/ul RBC (3.5-6.1) 10^6/uL Hgb (12.0-16.0) g/dL Hct (36.0-48.0) % MCV (80.0-105.0) fl MCH (25.0-35.0) pg MCHC (31.0-37.0) g/dl RDW (11.5-14.5) % Plt Count (120.0-450.0) 10^3/uL MPV (7.0-11.0) fl Gran % (50.0-68.0) % Lymph % (Auto) (22.0-35.0) % Marion % (Auto) (1.0-6.0) % Eos % (Auto) (1.5-5.0) % Baso % (Auto) (0.0-3.0) % Gran # (1.4-6.5) Lymph # (Auto) (1.2-3.4) Marion # (Auto) (0.1-0.6) Eos # (Auto) (0.0-0.7) Baso # (Auto) (0.0-2.0) K/mm3 Sodium 146 147 (132-148) mmol/L Potassium 4.7 2.9 L* (3.6-5.0) mmol/L Chloride 115 H 111 H (98-107) mmol/L Carbon Dioxide 23 26 (21-33) mmol/L Anion Gap 12 13 (10-20) BUN 8 8 (7-21) mg/dL Creatinine 0.5 L 0.6 L (0.7-1.2) mg/dl Est GFR ( Amer) > 60 > 60 Est GFR (Non-Af Amer) > 60 > 60 Random Glucose 95 137 H (70-110) mg/dL Calcium 8.8 8.9 (8.4-10.5) mg/dL Phosphorus 3.2 (2.5-4.5) mg/dL Magnesium 2.1 (1.7-2.2) mg/dL Total Bilirubin 1.0 (0.2-1.3) mg/dL AST 25 (14-36) U/L ALT 26 (7-56) U/L Alkaline Phosphatase 72 (38-126) U/L Total Protein 6.5 (5.8-8.3) g/dL Albumin 3.9 (3.0-4.8) g/dL Globulin 2.6 gm/dL Albumin/Globulin Ratio 1.5 (1.1-1.8) Urine Color (YELLOW) Urine Appearance (CLEAR) Urine pH (4.7-8.0) Ur Specific Whately (1.005-1.035) Urine Protein (<30 mg/dL) mg/dL Urine Glucose (UA) (NEGATIVE) mg/dL Urine Ketones (NEGATIVE) mg/dL Urine Blood (NEGATIVE) Urine Nitrate (NEGATIVE) Urine Bilirubin (NEGATIVE) Urine Urobilinogen (<1 E.U./dL) E.U./dL Ur Leukocyte Esterase (NEGATIVE) Jt/uL Urine RBC (0-2) /hpf Urine WBC (0-6) /hpf Ur Epithelial Cells (0-5) /hpf Urine Bacteria (NEG) Urine Opiates Screen (NEGATIVE) Urine Methadone Screen (NEGATIVE) Ur Barbiturates Screen (NEGATIVE) Ur Phencyclidine Scrn (NEGATIVE) Ur Amphetamines Screen (NEGATIVE) U Benzodiazepines Scrn (NEGATIVE) U Oth Cocaine Metabols (NEGATIVE) U Cannabinoids Screen (NEGATIVE) 12/29/17 12/29/17 12/29/17 Range/Units 05:00 01:15 00:41 WBC 5.7 (4.5-11.0) 10^3/ul RBC 3.84 (3.5-6.1) 10^6/uL Hgb 11.9 L (12.0-16.0) g/dL Hct 35.3 L (36.0-48.0) % MCV 91.9 (80.0-105.0) fl MCH 31.0 (25.0-35.0) pg MCHC 33.7 (31.0-37.0) g/dl RDW 13.0 (11.5-14.5) % Plt Count 213 (120.0-450.0) 10^3/uL MPV 10.4 (7.0-11.0) fl Gran % 61.3 (50.0-68.0) % Lymph % (Auto) 29.7 (22.0-35.0) % Marion % (Auto) 8.1 H (1.0-6.0) % Eos % (Auto) 0.4 L (1.5-5.0) % Baso % (Auto) 0.5 (0.0-3.0) % Gran # 3.46 (1.4-6.5) Lymph # (Auto) 1.7 (1.2-3.4) Marion # (Auto) 0.5 (0.1-0.6) Eos # (Auto) 0.0 (0.0-0.7) Baso # (Auto) 0.03 (0.0-2.0) K/mm3 Sodium (132-148) mmol/L Potassium (3.6-5.0) mmol/L Chloride (98-107) mmol/L Carbon Dioxide (21-33) mmol/L Anion Gap (10-20) BUN (7-21) mg/dL Creatinine (0.7-1.2) mg/dl Est GFR ( Amer) Est GFR (Non-Af Amer) Random Glucose (70-110) mg/dL Calcium (8.4-10.5) mg/dL Phosphorus (2.5-4.5) mg/dL Magnesium (1.7-2.2) mg/dL Total Bilirubin (0.2-1.3) mg/dL AST (14-36) U/L ALT (7-56) U/L Alkaline Phosphatase (38-126) U/L Total Protein (5.8-8.3) g/dL Albumin (3.0-4.8) g/dL Globulin gm/dL Albumin/Globulin Ratio (1.1-1.8) Urine Color Yellow (YELLOW) Urine Appearance Clear (CLEAR) Urine pH 6.0 (4.7-8.0) Ur Specific Whately 1.010 (1.005-1.035) Urine Protein Negative (<30 mg/dL) mg/dL Urine Glucose (UA) Negative (NEGATIVE) mg/dL Urine Ketones Negative (NEGATIVE) mg/dL Urine Blood Negative (NEGATIVE) Urine Nitrate Negative (NEGATIVE) Urine Bilirubin Negative (NEGATIVE) Urine Urobilinogen 0.2 (<1 E.U./dL) E.U./dL Ur Leukocyte Esterase Small H (NEGATIVE) Jt/uL Urine RBC 0 - 2 (0-2) /hpf Urine WBC 1 - 3 (0-6) /hpf Ur Epithelial Cells 3 - 4 (0-5) /hpf Urine Bacteria Rare (NEG) Urine Opiates Screen Negative (NEGATIVE) Urine Methadone Screen Negative (NEGATIVE) Ur Barbiturates Screen Negative (NEGATIVE) Ur Phencyclidine Scrn Negative (NEGATIVE) Ur Amphetamines Screen Negative (NEGATIVE) U Benzodiazepines Scrn Negative (NEGATIVE) U Oth Cocaine Metabols Negative (NEGATIVE) U Cannabinoids Screen Negative (NEGATIVE) Laboratory Results - last 24 hr 12/29/17 12/29/17 12/29/17 00:41 01:15 05:00 WBC 5.7 RBC 3.84 Hgb 11.9 L Hct 35.3 L MCV 91.9 MCH 31.0 MCHC 33.7 RDW 13.0 Plt Count 213 MPV 10.4 Gran % 61.3 Lymph % (Auto) 29.7 Marion % (Auto) 8.1 H Eos % (Auto) 0.4 L Baso % (Auto) 0.5 Gran # 3.46 Lymph # (Auto) 1.7 Marion # (Auto) 0.5 Eos # (Auto) 0.0 Baso # (Auto) 0.03 Sodium Potassium Chloride Carbon Dioxide Anion Gap BUN Creatinine Est GFR ( Amer) Est GFR (Non-Af Amer) Random Glucose Calcium Phosphorus Magnesium Total Bilirubin AST ALT Alkaline Phosphatase Total Protein Albumin Globulin Albumin/Globulin Ratio Urine Color Yellow Urine Appearance Clear Urine pH 6.0 Ur Specific Whately 1.010 Urine Protein Negative Urine Glucose (UA) Negative Urine Ketones Negative Urine Blood Negative Urine Nitrate Negative Urine Bilirubin Negative Urine Urobilinogen 0.2 Ur Leukocyte Esterase Small H Urine RBC 0 - 2 Urine WBC 1 - 3 Ur Epithelial Cells 3 - 4 Urine Bacteria Rare Urine Opiates Screen Negative Urine Methadone Screen Negative Ur Barbiturates Screen Negative Ur Phencyclidine Scrn Negative Ur Amphetamines Screen Negative U Benzodiazepines Scrn Negative U Oth Cocaine Metabols Negative U Cannabinoids Screen Negative 12/29/17 12/29/17 12/29/17 05:00 05:30 13:00 WBC RBC Hgb Hct MCV MCH MCHC RDW Plt Count MPV Gran % Lymph % (Auto) Marion % (Auto) Eos % (Auto) Baso % (Auto) Gran # Lymph # (Auto) Marion # (Auto) Eos # (Auto) Baso # (Auto) Sodium 147 146 Potassium 2.9 L* 4.7 Chloride 111 H 115 H Carbon Dioxide 26 23 Anion Gap 13 12 BUN 8 8 Creatinine 0.6 L 0.5 L Est GFR ( Amer) > 60 > 60 Est GFR (Non-Af Amer) > 60 > 60 Random Glucose 137 H 95 Calcium 8.9 8.8 Phosphorus 3.2 Magnesium 2.1 Total Bilirubin 1.0 AST 25 ALT 26 Alkaline Phosphatase 72 Total Protein 6.5 Albumin 3.9 Globulin 2.6 Albumin/Globulin Ratio 1.5 Urine Color Urine Appearance Urine pH Ur Specific Whately Urine Protein Urine Glucose (UA) Urine Ketones Urine Blood Urine Nitrate Urine Bilirubin Urine Urobilinogen Ur Leukocyte Esterase Urine RBC Urine WBC Ur Epithelial Cells Urine Bacteria Urine Opiates Screen Urine Methadone Screen Ur Barbiturates Screen Ur Phencyclidine Scrn Ur Amphetamines Screen U Benzodiazepines Scrn U Oth Cocaine Metabols U Cannabinoids Screen EKG/Cardiology Studies: Cardiology / EKG Studies 12/29/17 00:16 ELECTROCARDIOGRAM Stat Comment: Reason For Exam: OVERDOSE PRE OP:: N Does Patient Have a Pacemaker?: No 12/29/17 07:00 EKG [ELECTROCARDIOGRAM] Q6H Comment: Reason For Exam: monitor qt, seroquel overdose 12/29/17 11:30 EKG [ELECTROCARDIOGRAM] Routine Comment: Reason For Exam: seroquel overdose 12/29/17 13:00 EKG [ELECTROCARDIOGRAM] Q6H Comment: Reason For Exam: monitor qt, seroquel overdose 12/29/17 16:00 EKG [ELECTROCARDIOGRAM] Routine Comment: Reason For Exam: QTc Ival Critical Care Progress Note - Nutrition Nutrition: Nutrition Category Date Time Status Heart Healthy Diet [DIET] Diets 12/29/17 Breakfast Active Attending/Attestation - Attestation I have personally seen and examined this patient.: Yes I have fully participated in the care of the patient.: Yes I have reviewed all pertinent clinical information: Yes Notes (Text): 12/29/17 14:35 The patient was seen and examined at the bedside. Patient care was discussed with resident Medical records, lab studies, and imaging were reviewed and management issues were discussed and formulated. Agree with above treatment plans as outlined in 's note with addition of the following: Seroquel overdose \ Suicide attempt \ ETOH abuse \ Encephalopathy -hemodynamic monitoring to maintain MAP>65; cardiology eval appreciated -monitor QTC as per poison control recommendations -O2 supplementation to maintain Spo2>90 Pao2>60; currently on NC -monitor airway closely -f\u Bun\Cr and U\o, continue IVF with NS; monitor and replace e-lites -NPO diet and aspiration precautions -poison control recommends supportive care a this time -thiamine, folic acid and MVI -monitor for ETOH withdrawal -psychiatry team f\u -continue 1:1 -neurology team eval f\u -DVT \ PUD prophylaxis CCM time 30min
[2017-12-29 13:23] LABS: BLOOD UREA NITROGEN 8 mg/dL (7-21); CALCIUM 8.8 mg/dL (8.4-10.5); GFR AFRICAN-AMERICAN > 60; GFR NON-AFRICAN AMERICAN > 60
--- NOTE | 2017-12-29 14:49 | CARD ---
APPROVED REPORT Date of service: 12/29/2017 EKG Measurement Heart [id number] <Conclusion> Normal sinus rhythm Normal ECG
--- NOTE | 2017-12-29 16:00 | MRI ---
Date of service: 12/29/2017 PROCEDURE: MRI BRAIN WITHOUT CONTRAST HISTORY: slurred speech COMPARISON: None. TECHNIQUE: Multiplanar, multisequence MR images of the brain were obtained without intravenous contrast enhancement. FINDINGS: HEMORRHAGE: None DWI: No evidence of an acute or early subacute infarction. BRAIN PARENCHYMA: No mass effect or edema. No atrophy or chronic microvascular ischemic changes. VENTRICLES: Unremarkable. No hydrocephalus. CRANIUM: Unremarkable. ORBITS: Grossly unremarkable. PARANASAL SINUSES/MASTOIDS: Clear VASCULAR SYSTEM: Skull base flow voids intact. OTHER FINDINGS: None. IMPRESSION: Unremarkable non contrast enhanced MRI of the brain.
--- NOTE | 2017-12-29 17:12 | CON ---
Copied To: Nam Talavera MD Attending MD: Nam Talavera MD DATE: 12/29/2017 NEUROLOGY CONSULT CHIEF COMPLAINT: Altered mental status. HISTORY OF PRESENT ILLNESS: This is a 67-year-old woman with history of anxiety, who presently brought to the hospital after taking 15 tablets of Seroquel in an attempt to suicide 1 hour prior to evaluation. The patient is predominantly nonverbal and written conservation was used to obtain HPI information. The patient currently now is awake, alert, oriented to person, place and time. Just drinks small amount of alcohol daily. She has had some questionable mild slurred speech, therefore I was called to evaluate. Her MRI of the brain showed no acute intracranial abnormality. There is no evidence of any cerebrovascular accident. Her altered mental status was secondary to Seroquel overdose. She has very flat affect. There is no evidence of any dysmetria or focal weakness of the extremities. PAST MEDICAL HISTORY: Anxiety. PAST SURGICAL HISTORY: Right jaw surgery status post trauma. FAMILY HISTORY: Noncontributory. SOCIAL HISTORY: Denies any tobacco use. Drinks alcohol socially. Denies any illicit drug use. ALLERGIES: NO KNOWN DRUG ALLERGIES. HOME MEDICATIONS: Reviewed by nurses' reconciliation sheet. LABORATORY DATA: Alcohol content is 58. Sodium is 146, potassium 4.7, chloride 115, carbon dioxide 23, BUN of 8, creatinine 0.5, random glucose 75. PHYSICAL EXAMINATION: VITAL SIGNS: Temperature 97.8, pulse rate of 61, blood pressure 114/67, respiratory rate of 15, oxygen saturation 100% by room air. GENERAL: The patient is sitting up in bed, in no acute distress. HEENT: Atraumatic, normocephalic. PERRLA. Extraocular muscles intact. NECK: Supple. No JVD, no adenopathy noted. LUNGS: Clear to auscultation. No adventitious sounds. HEART: S1, S2. Normal rate and rhythm. No murmurs, rubs or gallops. ABDOMEN: Soft, nontender and nondistended. Bowel sounds are present. EXTREMITIES: No clubbing. No cyanosis. Peripheral pulses 2+ felt bilaterally. NEUROLOGIC: The patient is alert and oriented to person, place, month and year. Very flat affect. Poor attention span. Slow thought process. Cranial nerves II through XII intact. Motor exam: Moves all extremities equally. No pronator drift seen. Sensory exam: Light touch, pinprick, proprioception and vibration are intact. DTRs are 2+ throughout. Coordination: [id number] intact. No dysmetria noted. Gait is deferred for now. ASSESSMENT AND PLAN: This is a 67-year-old woman with history of anxiety, who did an overdose of Seroquel of 15 tablets in an attempt to suicide prior to arrival. I was called for altered mental status and questionable slurred speech. Her altered mental status and slurred speech are transient secondary to Seroquel overdose. MRI of the brain showed no evidence of any cerebral infarction. Her neurologic exam is currently nonfocal besides some anxiety and very flat affect. At this time, recommend, 1. To follow up with Psychiatry in regards to her Seroquel overdose in an attempt to suicide. 2. Advised relaxation techniques. 3. CIWA protocol for history of alcohol abuse. Thiamine 100 mg p.o. b.i.d. 4. Aspirin 81 mg p.o. daily for stroke prevention and continue current present medical management. No further neurological workup is needed at this time. Thank you for this consult. Nam Talavera MD
--- NOTE | 2017-12-29 18:34 | CARD ---
APPROVED REPORT Date of service: 12/29/2017 EXAM: Two-dimensional and M-mode echocardiogram with Doppler and color Doppler. INDICATION Abnormal EKG/Arrhythmia 2D DIMENSIONS Left Atrium (2D)3.1 (1.6-4.0cm)IVSd1.2 (0.7-1.1cm) LVDd3.8 (3.9-5.9cm)PWd0.9 (0.7-1.1cm) LVDs2.7 (2.5-4.0cm)FS (%) 29.2 % LVEF (%)56.7 (>50%) M-Mode DIMENSIONS Aortic Root2.30 (2.2-3.7cm)Aortic Cusp Exc.1.60 (1.5-2.0cm) Aortic Valve AoV Peak Ahgfldgt749.0cm/Sh[place] Peak GR.13mmHg Mitral Valve MV E Itbdpmjz82.2cm/sMV A Geqavmlx65.6cm/sE/A ratio1.2 TDI E/Lateral E'0.0E/Medial E'0.0 Tricuspid Valve TR Peak Vinooppm448tw/sRAP QNPMZSHW94poVrNI Peak Gr.23mmHg OOSZ19maIs LEFT VENTRICLE The left ventricle is normal size. There is normal left ventricular wall thickness. The left ventricular function is normal. The left ventricular ejection fraction is within the normal range. There is normal LV segmental wall motion. The left ventricular diastolic function is normal. No left ventricle thrombus noted on this study. There is no ventricular septal defect visualized. There is no left ventricular aneurysm. There is no mass noted in the left ventricle. RIGHT VENTRICLE The right ventricle is normal size. There is normal right ventricular wall thickness. The right ventricular systolic function is normal. ATRIA The left atrium size is normal. The right atrium size is normal. The interatrial septum is intact with no evidence for an atrial septal defect. AORTIC VALVE The aortic valve is thickened but opens well. The aortic valve is mildly sclerotic. No aortic regurgitation is present. There is no aortic valvular stenosis. There is no aortic valvular vegetation. MITRAL VALVE The mitral valve is thickened but opens well. Mitral regurgitation is trace. There is no mitral valve stenosis. There is no evidence of mitral valve prolapse. TRICUSPID VALVE The tricuspid valve leaflets are thickened , but open well. There is trace tricuspid regurgitation.RVSP-33 mmof Hg. There is no tricuspid valve stenosis. There is no tricuspid valve prolapse or vegetation. PULMONIC VALVE The pulmonary valve is normal in structure. There is trace pulmonic valvular regurgitation. There is no pulmonic valvular stenosis. GREAT VESSELS The aortic root is normal in size. The ascending aorta is normal in size. The pulmonary artery is normal. The IVC is normal in size and collapses >50% with inspiration. PERICARDIAL EFFUSION There is no pleural effusion. There is no pericardial effusion. <Conclusion> Normal chamber Size. EF-60-65% Trace MR/TR RVSP_33 mmof hg
--- NOTE | 2017-12-29 20:33 | CON ---
Copied To: Raisa Whitt MD Attending MD: Raisa Whitt MD DATE: 12/29/2017 SERVICE: Cardiology. REASON FOR THE CONSULTATION: Tachycardia, possible overdose of Seroquel, and alcohol abuse. BRIEF CLINICAL HISTORY: This is a 67-year-old female with no significant past medical history, possibly took Seroquel and drank alcohol. Took Seroquel from her dad and came in with altered mental status. Quantity of Seroquel the patient took is unknown, possibly 15 tablets. She used to take care of her dad, but the patient is recently in hospice care and she has an anxiety disorder herself as well. There is question that possibly she made an attempt to suicide, but since the patient is now disoriented, unable to give any detailed history, although denies any chest pain, shortness of breath, or any palpitation. PAST HISTORY: Nothing significant. Used to take Klonopin every now and then. SOCIAL HISTORY: Denies any smoking. Denies any history of alcohol abuse. PAST SURGICAL HISTORY: Possible jaw surgery in the past after the trauma. FAMILY HISTORY: Significant for coronary artery disease. Father had aortic stenosis, pacemaker, being followed by us. REVIEW OF SYSTEMS: As per HPI. CURRENT MEDICATIONS: Possible Klonopin every now and then. ALLERGIES: NO KNOWN DRUG ALLERGIES. PHYSICAL EXAMINATION: GENERAL: Height of the patient 5 feet 2 inches, weight of the patient 143 pounds, body mass index 26.2 kg/m2. VITAL SIGNS: Temperature afebrile, heart rate 62, blood pressure 94/54. HEENT: PERRLA. Extraocular muscles intact. NECK: Supple. No carotid bruits or thyromegaly. CHEST: Clear to auscultation. HEART: S1 and S2, regular. ABDOMEN: Soft. EXTREMITIES: Clubbing and cyanosis negative. LABORATORY DATA: Blood workup as follows; WBC 5.7, hemoglobin 11.7, hematocrit 35.3, and platelet count 213. Chemistry shows sodium 147, potassium 2.9, chloride 111, carbon dioxide 26, anion gap of 13. BUN 8, creatinine 0.9. Phosphorus 3.2, magnesium 2.1. Troponin 0.01. EKG #1 on admission shows normal sinus, ST-T depression. Second EKG shows atrial flutter, rate of 150, possible atrial flutter with ST-T changes noted, possibly secondary to rate related. #3 EKG this morning shows normal sinus. No acute ST-T changes noted. Heart rate of 63. IMPRESSION: A 67-year-old female with no significant past medical history except anxiety disorder and chronic pain at home, possibly took unknown quantity of Seroquel, possibly 15 pills with alcohol as well. Admitting blood alcohol level was 58. The patient was disoriented and confused. Father has aortic stenosis, dementia, and pacemaker. Probably took Seroquel from him. Currently, the patient is on 4-point restraint and confused. Denies any chest pain. Admitting EKG shows sinus tachycardia first and then atrial flutter 2:[address]-T changes. So far, no evidence of acute myocardial infarction. The patient was given Cardizem IV and heart rate improved. Then, again 5 mg of Lopressor, now the patient is in normal sinus. RECOMMENDATION: Since the patient is confused, disoriented, cannot take the p.o. pills, we put 2.5 mg of IV Lopressor every 6 hours for 24 hours, followed by p.r.n. We will get echo to rule out any structural heart disease. Probably, all these symptoms are secondary to overdose of the substance. We will get lipid profile, TSH, hemoglobin A1c. Further recommendations depend upon the hospital course. We will aggressively supplement electrolytes and do as needed. We will give DVT prophylaxis as well. We will follow with you. We will repeat her SMA-7 at 2 p.m. after supplementing potassium. Thank you Dr. Bahena, for providing us the opportunity in taking care of the patient, Falguni Thrasher. Raisa Whitt MD
--- NOTE | 2017-12-29 21:50 | CON ---
Copied To: Zahida Light MD Attending MD: Zahida Light MD DATE: 12/29/2017 HISTORY OF PRESENT ILLNESS: Shortly, the patient is a 67-year-old female with not known previous psychiatric history. This typewriter mechanic was not able to find any psych history at least at [facility]. The patient was admitted in ICU status post overdose on Seroquel, rule out suicidal attempt. As per report, the patient took approximately 15 pills of Seroquel 25 mg. As per report, the patient was feeling depressed. The patient was seen and examined today in the CCU. The patient presented to be alert, very restless, not able to express herself. The patient is giving some words, but she has no ability to express herself very well. The patient obviously has aphasia. As per primary care team, the patient reported that she was feeling depressed and that is why she wanted to end up her life by overdosing on Seroquel, but this typewriter mechanic was not able to assess the patient because she was not able to express herself. The patient reports that she fills her medication in the pharmacy. We will confirm med list from the pharmacy. PHYSICAL EXAMINATION: VITAL SIGNS: This typewriter mechanic reviewed vital signs. Vital signs seems to be stable. Pulse is 61, blood pressure 114/67, respirations 15, oxygen saturation is 100. MEDICATIONS: Medications reviewed. The patient is on Lovenox 40 mg subcutaneously, folic acid, Lopressor, multivitamins, thiamine, Protonix, potassium chloride. LABORATORY DATA: Labs reviewed. Hemoglobin and hematocrit 11.9 and 35.3 respectively. Potassium level is 2.9 today. AST and ALT within normal limits. Urinalysis: Leukocyte esterase positive and small. Alcohol level was 58. The rest is negative. The patient had electrocardiogram which showed sinus tachycardia, possible left atrial enlargement, ST depression. CT scan of the head was not done. Chest x-ray, no active disease. PAST PSYCHIATRIC HISTORY: Unknown, but the patient was on Seroquel. MENTAL STATUS EXAMINATION: The patient is alert. She knows that she is in the hospital. The patient is very restless, was not able to express herself, very hard to interview. The patient seems to be aphasic. Insight and judgements were not able to assess, but seems to be impaired. Impulses are not predictable. As per nursing staff, the patient was agitated, screaming, yelling and required medications. IMPRESSION: Most likely the patient is in delirium stage right now, rule out neurological deficit. The patient is status post overdose on Seroquel, no previous history known. PLAN: We will confirm medication from the patient's pharmacy. Neurology consult was called. The patient was placed on one-to-one because the patient is restless and has periods of agitation. Collateral information needs to be obtained from the family. Continue current management. Continue current medications. We will follow up and advise accordingly. Thank you very much for letting me participate in care of your patient. Zahida Light MD
[2017-12-30 05:58] LABS: BASO # 0.02 K/mm3 (0.0-2.0); BASO % 0.3 % (0.0-3.0); EOS # 0.1 (0.0-0.7); EOS % 1.8 % (1.5-5.0); GRAN # 5.33 (1.4-6.5); GRAN % 67.3 % (50.0-68.0); HEMOGLOBIN 12.5 g/dL (12.0-16.0); LYMPH # 1.8 (1.2-3.4); LYMPH % 22.5 % (22.0-35.0); MEAN CELL VOLUME 92.8 fl (80.0-105.0); MEAN CORPUSCULAR HEMOGLOBIN 30.9 pg (25.0-35.0); MEAN CORPUSCULAR HGB CONC 33.3 g/dl (31.0-37.0); MEAN PLATELET VOLUME 10.3 fl (7.0-11.0); MONO # 0.6 (0.1-0.6); MONO % 8.1 % (1.0-6.0); RBC 4.04 10^6/uL (3.5-6.1); WHITE BLOOD COUNT 7.9 10^3/ul (4.5-11.0)
[2017-12-30 06:07] LABS: ALB/GLOB RATIO 1.4 (1.1-1.8); ALBUMIN 3.8 g/dL (3.0-4.8); ALT/SGPT 29 U/L (7-56); AST/SGOT 26 U/L (14-36); BLOOD UREA NITROGEN 13 mg/dL (7-21); CALCIUM 9.3 mg/dL (8.4-10.5); GFR AFRICAN-AMERICAN > 60; GFR NON-AFRICAN AMERICAN > 60; HDL CHOLESTEROL 55 mg/dL (29-60)
[2017-12-30 06:17] LABS: LDL CHOLESTEROL 69 mg/dL (0-129)
[2017-12-30] MEDS: Pantoprazole 40 mg EC Tab PO SCH (06:45)
--- NOTE | 2017-12-30 09:05 | CARD ---
APPROVED REPORT Date of service: 12/30/2017 EKG Measurement Heart [id number] <Conclusion> Normal sinus rhythm Normal ECG
--- NOTE | 2017-12-30 09:09 | CARD ---
APPROVED REPORT Date of service: 12/29/2017 EKG Measurement Heart [id number] <Conclusion> Normal sinus rhythm with sinus arrhythmia ST abnormality Borderline ECG
[2017-12-30] MEDS: Multivitamin Therapeutic Tab PO SCH (10:20)
[2017-12-30] MEDS: Enoxaparin 40 mg Syringe SC SCH (10:20)
--- NOTE | 2017-12-30 11:29 | CP.CCUPN ---
<Jarret Ashford - Last Filed: 12/30/17 11:03> CCU Subjective - Physician Review Events Since Last Encounter (Free Text): 12/30/17 11:03 Patient seen and examined at bedside, no acute overnight events. Patient is awake and speaking now, denies any new complaints including chest pain and shortness of breath. Still states that she was suicidal before. CCU Objective - Vital Signs / Intake & Output Vital Signs (Last 4 hours): Vital Signs Pulse Resp BP 12/30/17 10:00 86 12/30/17 09:30 86 19 139/66 12/30/17 09:00 75 19 128/52 L 12/30/17 08:30 84 19 135/83 12/30/17 08:00 81 17 154/98 H 12/30/17 07:30 55 L 21 120/48 L Intake and Output (Last 8hrs): Intake & Output 12/29/17 12/30/17 12/30/17 22:59 06:59 14:59 Intake Total 1800 240 Output Total 780 Balance 1020 240 Intake: IV 1100 0 Right Wrist 1100 0 Oral 700 240 Output: Urine 780 Urine, Voided 780 Stool 0 Other: # Voids Urine, Voided 4 2 - Physical Exam Head: Positive for: Atraumatic, Normocephalic Pupils: Positive for: PERRL Extroacular Muscles: Positive for: EOMI Conjunctiva: Positive for: Normal Mouth: Positive for: Moist Mucous Membranes Neck: Positive for: Normal Range of Motion. Negative for: MIDLINE TENDERNESS, Paraspinal Tenderness Respiratory/Chest: Positive for: Clear to Auscultation, Good Air Exchange. Negative for: Respiratory Distress, Accessory Muscle Use Cardiovascular: Positive for: Regular Rate and Rhythm Abdomen: Positive for: Normal Bowel Sounds. Negative for: Tenderness, Distention, Peritoneal Signs Upper Extremity: Positive for: Normal Inspection. Negative for: Cyanosis, Edema Lower Extremity: Positive for: Normal Inspection. Negative for: Edema Neurological: Positive for: CN II-XII Intact Skin: Positive for: Warm, Dry, Normal Color. Negative for: Rashes Psychiatric: Negative for: Alert (patient is alert and oriented to person and place) - Medications Active Medications: Active Medications Generic Name Dose Route Start Last Admin Trade Name Freq PRN Reason Stop Dose Admin Enoxaparin Sodium 40 mg 12/29/17 10:00 08/04/18 10:20 Lovenox SC 40 mg DAILY CHUCK Administration Protocol Folic Acid 1 mg 12/30/17 10:00 12/30/17 10:20 Folic Acid PO 1 mg DAILY CHUCK Administration Lorazepam 1 mg 12/29/17 10:37 12/29/17 19:03 Ativan IVP 1 mg TID PRN Administration anxiety/restlessness Protocol Metoprolol Tartrate 12.5 mg 12/30/17 07:30 12/30/17 07:30 Lopressor PO Not Given BRKDIN CHUCK Multivitamins 1 tab 12/30/17 08:00 12/30/17 10:20 Thera Tab PO 1 tab 0800 CHUCK Administration Pantoprazole Sodium 40 mg 12/29/17 06:00 12/30/17 06:45 Protonix Ec Tab PO Not Given 0600 CHUCK Thiamine HCl 50 mg 12/30/17 10:00 12/30/17 10:20 Vitamin B1 Tab PO 50 mg DAILY CHUCK Administration - Patient Studies Lab Studies: Lab Studies 12/30/17 12/30/17 12/29/17 Range/Units 05:30 05:30 13:00 WBC 7.9 D (4.5-11.0) 10^3/ul RBC 4.04 (3.5-6.1) 10^6/uL Hgb 12.5 (12.0-16.0) g/dL Hct 37.5 (36.0-48.0) % MCV 92.8 (80.0-105.0) fl MCH 30.9 (25.0-35.0) pg MCHC 33.3 (31.0-37.0) g/dl RDW 13.0 (11.5-14.5) % Plt Count 215 (120.0-450.0) 10^3/uL MPV 10.3 (7.0-11.0) fl Gran % 67.3 (50.0-68.0) % Lymph % (Auto) 22.5 (22.0-35.0) % Nye % (Auto) 8.1 H (1.0-6.0) % Eos % (Auto) 1.8 (1.5-5.0) % Baso % (Auto) 0.3 (0.0-3.0) % Gran # 5.33 (1.4-6.5) Lymph # (Auto) 1.8 (1.2-3.4) Nye # (Auto) 0.6 (0.1-0.6) Eos # (Auto) 0.1 (0.0-0.7) Baso # (Auto) 0.02 (0.0-2.0) K/mm3 Sodium 142 146 (132-148) mmol/L Potassium 4.0 4.7 (3.6-5.0) mmol/L Chloride 105 115 H (98-107) mmol/L Carbon Dioxide 29 23 (21-33) mmol/L Anion Gap 12 12 (10-20) BUN 13 8 (7-21) mg/dL Creatinine 0.7 0.5 L (0.7-1.2) mg/dl Est GFR ( Amer) > 60 > 60 Est GFR (Non-Af Amer) > 60 > 60 Random Glucose 96 95 (70-110) mg/dL Calcium 9.3 8.8 (8.4-10.5) mg/dL Phosphorus 3.5 (2.5-4.5) mg/dL Magnesium 2.0 (1.7-2.2) mg/dL Total Bilirubin 0.9 (0.2-1.3) mg/dL AST 26 (14-36) U/L ALT 29 (7-56) U/L Alkaline Phosphatase 74 (38-126) U/L Total Protein 6.6 (5.8-8.3) g/dL Albumin 3.8 (3.0-4.8) g/dL Globulin 2.8 gm/dL Albumin/Globulin Ratio 1.4 (1.1-1.8) Triglycerides 161 H (35-160) mg/dL Cholesterol 154 (130-200) mg/dL LDL Cholesterol Direct 69 (0-129) mg/dL HDL Cholesterol 55 (29-60) mg/dL Laboratory Results - last 24 hr 12/29/17 12/30/17 12/30/17 13:00 05:30 05:30 WBC 7.9 D RBC 4.04 Hgb 12.5 Hct 37.5 MCV 92.8 MCH 30.9 MCHC 33.3 RDW 13.0 Plt Count 215 MPV 10.3 Gran % 67.3 Lymph % (Auto) 22.5 Nye % (Auto) 8.1 H Eos % (Auto) 1.8 Baso % (Auto) 0.3 Gran # 5.33 Lymph # (Auto) 1.8 Nye # (Auto) 0.6 Eos # (Auto) 0.1 Baso # (Auto) 0.02 Sodium 146 142 Potassium 4.7 4.0 Chloride 115 H 105 Carbon Dioxide 23 29 Anion Gap 12 12 BUN 8 13 Creatinine 0.5 L 0.7 Est GFR ( Amer) > 60 > 60 Est GFR (Non-Af Amer) > 60 > 60 Random Glucose 95 96 Calcium 8.8 9.3 Phosphorus 3.5 Magnesium 2.0 Total Bilirubin 0.9 AST 26 ALT 29 Alkaline Phosphatase 74 Total Protein 6.6 Albumin 3.8 Globulin 2.8 Albumin/Globulin Ratio 1.4 Triglycerides 161 H Cholesterol 154 LDL Cholesterol Direct 69 HDL Cholesterol 55 EKG/Cardiology Studies: Cardiology / EKG Studies 12/29/17 11:30 EKG [ELECTROCARDIOGRAM] Routine Comment: Reason For Exam: seroquel overdose 12/29/17 13:00 EKG [ELECTROCARDIOGRAM] Q6H Comment: Reason For Exam: monitor qt, seroquel overdose 12/29/17 16:00 EKG [ELECTROCARDIOGRAM] Routine Comment: Reason For Exam: QTc Ival 12/30/17 07:03 EKG [ELECTROCARDIOGRAM] Stat Comment: Reason For Exam: QTc Critical Care Progress Note - Nutrition Nutrition: Nutrition Category Date Time Status Heart Healthy Diet [DIET] Diets 12/29/17 Breakfast Active Assessment/Plan - Assessment and Plan (Free Text) Assessment: 67 year old female with PMH pertinent for anxiety presenting to the ICU for management for seroquel overdose AMS, likely 2/2 seroquel overdose Acute Hypokalemia - resolved Acute Hypomagnesemia - resolved Patient's EKG this AM showed QTc interval of 428, with resolved prolongation. Patient labs are stable, potassium and magnesium within normal limits. No signs of infection or organic causes of initial presentation of altered mental status. Patient's AMS has resolved. Plan: Neuro: - Maintain normothermia - Neurology consulted, appreciate recommendations Lungs: - Maintain SaO2>90 Cardio: - Maintain MAP>65 - Metoprolol per cardiology - Cardiology consulted - Dr. Whitt Psych: - Psych is consulted: Dr. Amaro Nephro: - Maintain euvolemia, avoid hypochloremia - Replace lytes PRN GI: - Heart healthy diet - Pantoprazole prophylaxis Heme: - Prophylaxis lovenox ID: - No ID Issues Endo: - Maintain euglycemia Dispo: At this time, patient is stable for transfer out of the ICU, QTc is 428 , < 440. <Andrez Montes De Oca - Last Filed: 12/30/17 12:05> CCU Objective - Vital Signs / Intake & Output Vital Signs (Last 4 hours): Vital Signs Pulse Resp BP 12/30/17 10:00 86 12/30/17 09:30 86 19 139/66 12/30/17 09:00 75 19 128/52 L 12/30/17 08:30 84 19 135/83 Intake and Output (Last 8hrs): Intake & Output 12/29/17 12/30/17 12/30/17 22:59 06:59 14:59 Intake Total 1800 240 Output Total 780 Balance 1020 240 Intake: IV 1100 0 Right Wrist 1100 0 Oral 700 240 Output: Urine 780 Urine, Voided 780 Stool 0 Other: # Voids Urine, Voided 4 2 - Medications Active Medications: Active Medications Generic Name Dose Route Start Last Admin Trade Name Freq PRN Reason Stop Dose Admin Enoxaparin Sodium 40 mg 12/29/17 10:00 12/30/17 10:20 Lovenox SC 40 mg DAILY CHUCK Administration Protocol Folic Acid 1 mg 12/30/17 10:00 12/30/17 10:20 Folic Acid PO 1 mg DAILY CHUCK Administration Lorazepam 1 mg 12/29/17 10:37 12/29/17 19:03 Ativan IVP 1 mg TID PRN Administration anxiety/restlessness Protocol Metoprolol Tartrate 12.5 mg 12/30/17 07:30 12/30/17 07:30 Lopressor PO Not Given BRKDIN CHUCK Multivitamins 1 tab 12/30/17 08:00 12/30/17 10:20 Thera Tab PO 1 tab 0800 CHUCK Administration Pantoprazole Sodium 40 mg 12/29/17 06:00 12/30/17 06:45 Protonix Ec Tab PO Not Given 0600 CHUCK Thiamine HCl 50 mg 12/30/17 10:00 12/30/17 10:20 Vitamin B1 Tab PO 50 mg DAILY CHUCK Administration - Patient Studies Lab Studies: Lab Studies 12/30/17 12/30/17 12/29/17 Range/Units 05:30 05:30 13:00 WBC 7.9 D (4.5-11.0) 10^3/ul RBC 4.04 (3.5-6.1) 10^6/uL Hgb 12.5 (12.0-16.0) g/dL Hct 37.5 (36.0-48.0) % MCV 92.8 (80.0-105.0) fl MCH 30.9 (25.0-35.0) pg MCHC 33.3 (31.0-37.0) g/dl RDW 13.0 (11.5-14.5) % Plt Count 215 (120.0-450.0) 10^3/uL MPV 10.3 (7.0-11.0) fl Gran % 67.3 (50.0-68.0) % Lymph % (Auto) 22.5 (22.0-35.0) % Nye % (Auto) 8.1 H (1.0-6.0) % Eos % (Auto) 1.8 (1.5-5.0) % Baso % (Auto) 0.3 (0.0-3.0) % Gran # 5.33 (1.4-6.5) Lymph # (Auto) 1.8 (1.2-3.4) Nye # (Auto) 0.6 (0.1-0.6) Eos # (Auto) 0.1 (0.0-0.7) Baso # (Auto) 0.02 (0.0-2.0) K/mm3 Sodium 142 146 (132-148) mmol/L Potassium 4.0 4.7 (3.6-5.0) mmol/L Chloride 105 115 H (98-107) mmol/L Carbon Dioxide 29 23 (21-33) mmol/L Anion Gap 12 12 (10-20) BUN 13 8 (7-21) mg/dL Creatinine 0.7 0.5 L (0.7-1.2) mg/dl Est GFR ( Amer) > 60 > 60 Est GFR (Non-Af Amer) > 60 > 60 Random Glucose 96 95 (70-110) mg/dL Calcium 9.3 8.8 (8.4-10.5) mg/dL Phosphorus 3.5 (2.5-4.5) mg/dL Magnesium 2.0 (1.7-2.2) mg/dL Total Bilirubin 0.9 (0.2-1.3) mg/dL AST 26 (14-36) U/L ALT 29 (7-56) U/L Alkaline Phosphatase 74 (38-126) U/L Total Protein 6.6 (5.8-8.3) g/dL Albumin 3.8 (3.0-4.8) g/dL Globulin 2.8 gm/dL Albumin/Globulin Ratio 1.4 (1.1-1.8) Triglycerides 161 H (35-160) mg/dL Cholesterol 154 (130-200) mg/dL LDL Cholesterol Direct 69 (0-129) mg/dL HDL Cholesterol 55 (29-60) mg/dL Laboratory Results - last 24 hr 12/29/17 12/30/17 12/30/17 13:00 05:30 05:30 WBC 7.9 D RBC 4.04 Hgb 12.5 Hct 37.5 MCV 92.8 MCH 30.9 MCHC 33.3 RDW 13.0 Plt Count 215 MPV 10.3 Gran % 67.3 Lymph % (Auto) 22.5 Nye % (Auto) 8.1 H Eos % (Auto) 1.8 Baso % (Auto) 0.3 Gran # 5.33 Lymph # (Auto) 1.8 Nye # (Auto) 0.6 Eos # (Auto) 0.1 Baso # (Auto) 0.02 Sodium 146 142 Potassium 4.7 4.0 Chloride 115 H 105 Carbon Dioxide 23 29 Anion Gap 12 12 BUN 8 13 Creatinine 0.5 L 0.7 Est GFR ( Amer) > 60 > 60 Est GFR (Non-Af Amer) > 60 > 60 Random Glucose 95 96 Calcium 8.8 9.3 Phosphorus 3.5 Magnesium 2.0 Total Bilirubin 0.9 AST 26 ALT 29 Alkaline Phosphatase 74 Total Protein 6.6 Albumin 3.8 Globulin 2.8 Albumin/Globulin Ratio 1.4 Triglycerides 161 H Cholesterol 154 LDL Cholesterol Direct 69 HDL Cholesterol 55 EKG/Cardiology Studies: Cardiology / EKG Studies 12/29/17 11:30 EKG [ELECTROCARDIOGRAM] Routine Comment: Reason For Exam: seroquel overdose 12/29/17 13:00 EKG [ELECTROCARDIOGRAM] Q6H Comment: Reason For Exam: monitor qt, seroquel overdose 12/29/17 16:00 EKG [ELECTROCARDIOGRAM] Routine Comment: Reason For Exam: QTc Ival 12/30/17 07:03 EKG [ELECTROCARDIOGRAM] Stat Comment: Reason For Exam: QTc Critical Care Progress Note - Nutrition Nutrition: Nutrition Category Date Time Status Heart Healthy Diet [DIET] Diets 12/29/17 Breakfast Active Assessment/Plan - Assessment and Plan (Free Text) Assessment: Patient seen and examined on rounds with resident, agree with note with following additions/exceptions: Patient is 67yo female with PMhx of depression, anxiety, presented with seroquel overdose. Currently afebrile, HD stable, comfortable in NAD, doing well, AAOx3 Labs, imaging, chart reviewed EKG done today, QTc 428 LFTs wnl, Cr wnl Seen by psychiatry Stable Transfer to remote telemetry
--- NOTE | 2017-12-30 21:13 | PN ---
Copied To: Pritesh Bahena MD Attending MD: Pritesh Bahena MD DATE: 12/30/2017 SUBJECTIVE: The patient is 67 years old, seems to be much more awake and alert, still slurring of speech, but she knows what she is talking about. She did admit that she was overwhelmed with the situation at home. She was upset with her sister also and because of her deteriorating health of her father, so she wanted to end that and admits talking couple of Klonopin. PHYSICAL EXAMINATION: GENERAL: She is awake, alert, oriented, and communicative. VITAL SIGNS: She is afebrile, pulse 77, respirations 16, and blood pressure 139/113. LUNGS Bilateral good airflow. No rhonchi or crackle. HEART: S1, S2 audible. ABDOMEN: Soft and nontender. No rebound, no guarding. NEUROLOGIC: The patient is awake, alert, oriented, and communicative. LABORATORY EXAM: WBC 7.9, hemoglobin 12.5, hematocrit 37.5, and platelets of 215. Chemistry: Sodium 142, potassium 4, chloride 105, CO2 of 29. BUN 13, creatinine 0.7. Blood sugar of 96. Alcohol level is positive. ASSESSMENT: 1. Status post Klonopin overdose. 2. Suicidal attempt. 3. Hypertension. 4. Depression. PLAN: The patient is clinically stable, can be transferred out of ICU. Remain on one-to-one observation. Discussed with patient for her transfer to Psych Unit. She seems to be agreeable. She states she is willing to sign herself into the Psych Unit and I told I will observe her behaviors. Needs medications to balance her chemicals. She seems to agree to go to Psych Unit. Pritesh Bahena MD
--- NOTE | 2017-12-30 22:12 | CON ---
Copied To: Daryl Amaro MD Attending MD: Daryl Amaro MD. DATE: 12/30/2017 HISTORY OF PRESENT ILLNESS: The patient is a single 67-year-old white female with a history of anxiety, possible depression, currently in outpatient psychiatric treatment with Dr. Hall in [facility], no prior suicide attempts, no psychiatric admission, who is admitted to the ICU status post overdosing on Seroquel as a suicide attempt. As per report, the patient took approximately 15 pills of Seroquel 25 mg because of depression. Dr. Light did attempt to interview the patient and the case reviewed the day prior, however, she was not able to engage in any meaningful interview. I reviewed recent notes, which indicated patient has been restless, unpredictable, trying to get out of bed, and then confused. I met with her at bedside and surprisingly, she is alert and oriented to current month, year, location, and circumstances. The patient readily admitted that she overdosed on Seroquel and indicated that this was an impulsive act, but she did mean to kill herself with this act. She does not appear to be overly grateful about being alive at this time, though she does report regretting the overdose. The patient is guarded and indicates that "things" led to her behavior prior to admission and this provider has to try to elicit the stressors going on in the patient's life which appear to revolve around her father's care. The patient resides with her father and her father has been ill and the patient had decided a few days ago, last Monday, approximately 4 days ago, that father required hospice care. Apparently, the issue of her father's care has provoked a conflict with her younger sister as well as other family members including her niece. The patient indicates that all her decisions have been questioned by her family members including her decision to start morphine for her father to improve his comfort. The patient indicates that there was a "tremendous argument" with her sister prior to her impulsive overdose. The patient stated "everything I do is wrong." Nonetheless, the patient denies feeling depressed and appears that she is reluctantly communicating the nature of the circumstances leading to her presentation. I expressed my concerns about the patient doing a similar impulsive act in the future and the patient does not respond. She does not appear to be entirely engaged in my effects of withdrawal from the Seroquel that she took and/or there might be a component of delirium affecting her ability to fully engage with this provider. Affect is constricted. She is not hallucinating. She denies any hallucinations and delusions are not elicited. Her insight and judgement appeared to be impaired. PSYCHIATRIC HISTORY: The patient reports that she had no prior psychiatric hospitalizations or prior suicide attempts. The patient reports that she has been in the outpatient care of Dr. Hall at [facility]. She was only prescribed Klonopin 1 mg daily. The Seroquel that she overdosed on was her father's prescription. SOCIAL HISTORY: The patient is single. She has no children and indicates that she lives with her father who was recently put in hospice care in the past week. The patient denies any drug or alcohol issues. Vital signs are reviewed by this provider. Labs are also reviewed by this provider and of note, UDS was negative, however, BAL was 58 when the patient presented on 12/28/2017. The patient did not indicate that she had been drinking during the course of her overdose during her interview today. Relevant psychiatric medications only include Ativan 1 mg IV t.i.d. which the patient received one dose at 7:00 p.m. last night. IMPRESSION: Mood disorder, not otherwise specified; anxiety disorder; rule out alcohol abuse; rule out major depressive disorder; rule out adjustment disorder with mixed depression and anxiety; rule out grief reaction. RECOMMENDATIONS: 1. At this time, this provider does not feel comfortable psychiatrically clearing the patient as she has been guarded about the circumstances leading to her impulsive overdose. In addition, she cannot provide any guarantee that this will not occur again. She still appears depressed, though denies having any depression and the severity of symptoms leading to her wanting to take her life appeared out of proportion to her behaviors. Psychiatry will continue to follow up with the patient. Discussed possibility of psychiatric inpatient monitoring and treatment and hopefully she will sign in; however, if she does not, will have to screen the patient by [facility] for involuntary commitment. 2. Medical team should contact with the patient's family members, specifically patient's sister Ambreen Bunch and inform her that the patient has been hospitalized. The patient does not give consent for any other information has been given to her family members at this time per our interview this morning except for the fact that she has been hospitalized. The patient does not give consent for this provider to speak with her family members about her functioning and symptoms and current status either at this time. Psychiatry will continue to follow. Next followup will be on 12/31/[address] Amaro. Daryl Amaro MD
[2017-12-31] MEDS: Pantoprazole 40 mg EC Tab PO SCH (06:02)
[2017-12-31 06:08] LABS: BASO # 0.02 K/mm3 (0.0-2.0); BASO % 0.3 % (0.0-3.0); EOS # 0.1 (0.0-0.7); EOS % 2.2 % (1.5-5.0); GRAN # 3.57 (1.4-6.5); GRAN % 59.4 % (50.0-68.0); LYMPH # 1.8 (1.2-3.4); LYMPH % 30.3 % (22.0-35.0); MEAN CELL VOLUME 91.2 fl (80.0-105.0); MEAN CORPUSCULAR HEMOGLOBIN 30.9 pg (25.0-35.0); MEAN CORPUSCULAR HGB CONC 33.9 g/dl (31.0-37.0); MEAN PLATELET VOLUME 10.5 fl (7.0-11.0); MONO # 0.5 (0.1-0.6); MONO % 7.8 % (1.0-6.0); RBC 3.88 10^6/uL (3.5-6.1); RED CELL DISTRIBUTION WIDTH 12.7 % (11.5-14.5)
[2017-12-31 06:33] LABS: ALB/GLOB RATIO 1.3 (1.1-1.8); ALBUMIN 3.4 g/dL (3.0-4.8); ALT/SGPT 30 U/L (7-56); AST/SGOT 21 U/L (14-36); BLOOD UREA NITROGEN 12 mg/dL (7-21); CALCIUM 8.9 mg/dL (8.4-10.5); GFR AFRICAN-AMERICAN > 60; GFR NON-AFRICAN AMERICAN > 60
[2017-12-31] MEDS: Multivitamin Therapeutic Tab PO SCH (08:14)
[2017-12-31] MEDS: Enoxaparin 40 mg Syringe SC SCH (10:45)
--- NOTE | 2017-12-31 21:10 | PN ---
Copied To: Chun Castro MD Attending MD: Chun Castro MD DATE: 12/31/2017 SUBJECTIVE: The patient has no complaints of any chest pain. No shortness of breath, no headaches. She states she feels well. She is able to sleep last night. PHYSICAL EXAMINATION VITAL SIGNS: Temperature is 98.7, pulse of 57, blood pressure is 122/65, respirations 18. GENERAL: The patient is lying in bed, flat, comfortable. HEENT: No oral lesion. Anicteric sclerae. Moist mucosa. NECK: No JVD, adenopathy, or thyromegaly. CARDIOVASCULAR: S1 and S2, regular. No murmurs, rubs, or gallops. LUNGS: Clear to auscultation bilaterally. No wheeze, rales, or rhonchi. ABDOMEN: Bowel sounds are positive, soft, nontender and nondistended. EXTREMITIES: No cyanosis, clubbing or edema. ASSESSMENT: 1. Klonopin overdose. 2. Suicidal attempt. 3. Depression. 4. Hypertension. PLAN: The patient had been on one-to-one; she is no longer on one-to-one. She is going to be transferred to Medical-Surgical floor. She is being followed by Psychiatry. She may need to go to Psychiatric Unit. She is agreeable. The patient is on folic acid Lovenox for DVT prophylaxis. She is on thiamine, multivitamins. She is on a heart-healthy diet. Chun Castro MD
[2018-01-01 07:19] LABS: BASO # 0.03 K/mm3 (0.0-2.0); BASO % 0.5 % (0.0-3.0); EOS # 0.1 (0.0-0.7); EOS % 2.2 % (1.5-5.0); GRAN # 3.59 (1.4-6.5); GRAN % 55.9 % (50.0-68.0); HEMOGLOBIN 12.4 g/dL (12.0-16.0); LYMPH # 2.1 (1.2-3.4); LYMPH % 32.1 % (22.0-35.0); MEAN CELL VOLUME 91.5 fl (80.0-105.0); MEAN CORPUSCULAR HEMOGLOBIN 31.1 pg (25.0-35.0); MEAN PLATELET VOLUME 10.3 fl (7.0-11.0); MONO # 0.6 (0.1-0.6); MONO % 9.3 % (1.0-6.0); RBC 3.99 10^6/uL (3.5-6.1); RED CELL DISTRIBUTION WIDTH 12.7 % (11.5-14.5); WHITE BLOOD COUNT 6.4 10^3/ul (4.5-11.0)
[2018-01-01 07:45] LABS: ALB/GLOB RATIO 1.5 (1.1-1.8); ALT/SGPT 37 U/L (7-56); AST/SGOT 37 U/L (14-36); BLOOD UREA NITROGEN 13 mg/dL (7-21); CALCIUM 9.5 mg/dL (8.4-10.5); GFR AFRICAN-AMERICAN > 60; GFR NON-AFRICAN AMERICAN > 60
--- NOTE | 2018-01-01 08:06 | CON ---
Copied To: Daryl Amaro MD Attending MD: Daryl Amaro MD DATE: 12/31/2017 HISTORY OF PRESENT ILLNESS: The patient is a single 67-year-old white female with history of anxiety likely depression currently in outpatient Psychiatric treatment with Dr. Hall in [facility], no prior suicide attempts, no Psychiatric admission, who is admitted to the CCU status with overdosing on Seroquel with suicide attempt. Psychiatrist is following up with the patient due to her altered mental status as well as seriousness of behavior leading up to her presentation. Yesterday, the patient was much more alert and oriented to month, year, location, and circumstances and she continues to improve with her mental status today. She readily admitted that she overdosed on Seroquel to kill herself and today she appears to be a lot more engaging ____ and indicates that she regrets the suicide thoughts. She engaged in further psychiatric treatment once she is medically cleared and in this respect she is agreeable to sign involuntary with Psychiatric Unit. The patient reports that she is feeling overwhelmed and she admits that she needs more help at this time than "she has pains, my doctor wants to have three ____." The patient appears to be in good control, constricted affect, thought process is coherent and she does now appear to be anymore and impulse control appears to be in good control as well, as noted above she denies any suicidal thoughts or thoughts of harm others. Insight and judgment are improving. Labs and vitals were reviewed by this provider. IMPRESSION: Mood disorder, not otherwise specified; anxiety disorder; rule out alcohol abuse; rule out major depressive disorder; ____ rule out adjustment disorder with mixed depression and anxiety; rule out grief reaction. Relevant psychiatric medications only include Ativan 1 mg IV three times a day p.r.n. of which the patient only received one dose on 12/29/2017. RECOMMENDATIONS: 1. At this time, ____ change in regimen and she require more intensive medical management in the CCU. Psychiatry will treat the patient conservatively in this regard until she is more medically stable. Nonetheless, plan is to the patient to be transferred ultimately to the psychiatric unit once she is medically cleared in which case we will further discuss treatment with antidepressants. We will further discuss symptoms and possible treatment with antidepressants. Regarding patient does not require one-to-one as she is no longer suicidal. The patient also appears to have improved, in this regards they did not need one-to-one medical reasons either. Psychiatry will consider the follow up the patient specifically Dr. Light and follow up with patient on 01/01/2018. Daryl Amaro MD
--- NOTE | 2018-01-01 08:25 | CP.PCM.PN ---
Subjective - Date & Time of Evaluation Date of Evaluation: 01/01/18 Time of Evaluation: 06:20 - Subjective Subjective: awake, no distress, slept well Reason for consultation and follow up: Cardiac evaluation of tachycardia, possible seroquel overdose and alcohol abuse Seen and examined by me and Dr. Whitt Objective - Vital Signs/Intake and Output Vital Signs (last 24 hours): Temp Pulse Resp BP Pulse Ox 98.7 F 78 18 153/84 H 97 12/31/17 14:00 12/31/17 17:58 12/31/17 14:00 12/31/17 17:58 12/31/17 14:00 - Medications Medications: Current Medications Enoxaparin Sodium (Lovenox) 40 mg SC DAILY [facility] PRN Reason: Protocol Last Admin: 12/31/17 10:45 Dose: 40 mg Folic Acid (Folic Acid) 1 mg PO DAILY [facility] Last Admin: 12/31/17 10:42 Dose: 1 mg Lorazepam (Ativan) 1 mg IVP TID PRN; Protocol PRN Reason: anxiety/restlessness Last Admin: 12/31/17 22:45 Dose: 1 mg Metoprolol Tartrate (Lopressor) 12.5 mg PO BRKDIN [facility] Last Admin: 12/31/17 17:58 Dose: 12.5 mg Multivitamins (Thera Tab) 1 tab PO 0800 [facility] Last Admin: 12/31/17 08:14 Dose: 1 tab Pantoprazole Sodium (Protonix Ec Tab) 40 mg PO 0600 [facility] Last Admin: 12/31/17 06:02 Dose: 40 mg Thiamine HCl (Vitamin B1 Tab) 50 mg PO DAILY [facility] Last Admin: 12/31/17 10:42 Dose: 50 mg - Labs Labs: 01/01/18 06:45 01/01/18 06:45 - Constitutional Appears: No Acute Distress - Head Exam Head Exam: NORMOCEPHALIC - Eye Exam Eye Exam: Normal appearance - ENT Exam ENT Exam: Mucous Membranes Moist - Respiratory Exam Respiratory Exam: Clear to Ausculation Bilateral, NORMAL BREATHING PATTERN - Cardiovascular Exam Cardiovascular Exam: +S1, +S2 - GI/Abdominal Exam GI & Abdominal Exam: Soft, Normal Bowel Sounds - Extremities Exam Extremities Exam: Normal Capillary Refill - Neurological Exam Neurological Exam: Alert, Awake, Oriented x3 - Psychiatric Exam Psychiatric exam: Normal Affect - Skin Skin Exam: Dry, Warm Assessment and Plan - Assessment and Plan (Free Text) Assessment: A 67 year old female who came in to the ER due to Seroquel overdose. Consultation was called due to tachycardia. Patient has history of anxiety taking Klonopin PRN. Denies any other history. ECHO showed LVEF 65%, Trace MR/TR. today awake, alert, responsive, Plan: On suicidal watch Awake, alert oriented Wanted to go to Psych unit Heart rate stable Systolic blood pressure 150's Will start Norvasc Continue current treatment Continue current medications Will follow up Plan and treatment discussed with Dr. Whitt
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
[2018-01-01] MEDS: Pantoprazole 40 mg EC Tab PO SCH (09:18)
[2018-01-01] MEDS: Enoxaparin 40 mg Syringe SC SCH (10:02)
[2018-01-01] MEDS: Multivitamin Therapeutic Tab PO SCH (10:02)
[2018-01-01 14:51] VITALS: BP 131/75; PULSE 69; RESP 20; TEMP 98.4; O2SAT 96
--- NOTE | 2018-01-01 18:29 | PN ---
Copied To: Zahida Light MD Attending MD: Zahida Light MD DATE: 01/01/2018 SUBJECTIVE: In short, the patient is a 67-year-old female with reported history of anxiety. The patient overdosed on Seroquel in order to kill herself. The patient was admitted to ICU. She was stable over the weekend. This keno writer / runner is following up on this patient. The patient presented to be alert and oriented. The patient was on one-to-one for suicide precaution. The patient seems to be remorseful about her act, but still was making statement, "I do not know if I feel happy or said to be alive, but I know for sure that I am not upset that I did not ." The patient said that her suicidal act was in response to her sister screaming at her. The patient reported that she overdosed on Seroquel, which belongs to her father. The patient reported that she had Seroquel plus wine at that moment. The patient said, "I wanted to end it all. I was feeling so small, I was feeling that I did not deserve to continue living." The patient denied hearing voices, denied seeing things. The patient reported that she never been admitted to the Psychiatric Inpatient Unit. The patient reported that she is not using any drugs. The patient reported that she was feeling overwhelmed and depressed over the fact that her mother in 2012 and father is in hospice right now for advanced dementia. VITAL SIGNS: Seems to be stable. Temperature 98.4, pulse is 69, blood pressure 131/75, respiration 20, oxygen saturation 96%. MEDICATIONS: Reviewed. The patient is on Norvasc, Lovenox, folic acid, Ativan 1 mg IV push three times a day as needed, last time it was on 5th, Lopressor, multivitamins, Protonix and thiamine. LABORATORY DATA: Reviewed. Toxicology reviewed. Positive for alcohol. Leukocyte esterase was small. Microbiology, no growth. Reports reviewed. The patient has electrocardiogram on 12/30. Normal sinus rhythm. Brain MRI was also done on 12/29/2017, unremarkable. MENTAL STATUS EXAMINATION: The patient appears to be alert, talkative, at times tearful, childlike demeanor. The patient was making statement, "I missed my life, I did not live my life, I always was taking care of my parents, for the past 11 years I missed my life." Thought process seems to be circumstantial at times. Mood described as depressed. Affect was tearful. Thought process circumstantial. Thought content, the patient denied visual, auditory, tactile hallucinations. Denied paranoid ideation. The patient does not present to be psychotic. The patient seems to be careless if she is still alive or were not. Insight and judgment seems to be improving. Impulses are well controlled. IMPRESSION: Rule out major depressive disorder, rule out adjustment disorder, rule out impulse control disorder, rule out alcohol abuse, but the patient denied. PLAN: Continue current medications. This keno writer / runner discussed option of starting Remeron at the nighttime for insomnia as well as for depression, Klonopin will be resumed 0.5 mg three times a day as needed for anxiety. The patient was followed up by Dr. Robert at [facility] for anxiety. Medications confirmed. The patient is willing to sign into the Psychiatric Inpatient Unit for further evaluation and stabilization. We will monitor the patient closely. We will call for the patient's boyfriend for collateral information. Should you have any questions, give me a call back. The patient will be signed to the Psychiatric Inpatient Unit today. Zahida Light MD : 01/01/2018 17:05:30
--- NOTE | 2018-01-02 18:22 | DS ---
Copied To: Pritesh Bahena MD Attending MD: Pritesh Bahena MD Patient is a 67-year-old who had a history of anxiety recently because of father's sickness. He was recently placed on hospice care. She had some family conflict because of that. She admitted oral dosing her regular Klonopin. She was admitted in ICU for cardiac monitoring and Poison Control was contacted. Patient remains well, came out of her deep sedation caused by heavy dose tranquilizer. I had a long discussion with the patient. She is willing to go to the Psych Unit voluntarily. PHYSICAL EXAMINATION: GENERAL: Today, she is awake, alert, communicative. VITAL SIGNS: She is afebrile, pulse 69, respirations 20, blood pressure 131/75. LUNG: Bilateral fair airflow. No rhonchi or crackle. HEART: S1 and S2 audible. ABDOMEN: Soft and nontender. No rebound. No guarding. NEUROLOGIC: She is awake, alert, oriented, able to communicate. LABORATORY EXAM: WBC 6.4, hemoglobin 12.4, hematocrit 36.5, platelets of 214. Chemistry: Sodium 142, potassium 4, chloride 105, CO2 29, BUN 13, creatinine 1.7, blood sugar 94. Blood, positive for alcohol. ASSESSMENT AND PLAN: 1. Status post Klonopin overdose. 2. Anxiety disorder. 3. Suicidal attempt. PLAN: Patient is clinically stable from medical point of view. She can be transferred to Psych Unit until she is willing to get treated while in the unit, so will be transferred there. Pritesh Bahena MD
== END 2018-01-01 18:06 | DRG 918 ==
LOC: ED 22:43 → ERH 12-29 00:39 → CCU 12-29 03:08 → 5RSO 12-31 12:21
PROVIDERS: ADMIT Internal Medicine; ATTEND Internal Medicine
DX: T43.592A Poisoning by other antipsychotics and neuroleptics, intentional self-harm, initial encounter (principal); F32.9 Major depressive disorder, single episode, unspecified; I48.92 Unspecified atrial flutter; R47.01 Aphasia; I25.10 Atherosclerotic heart disease of native coronary artery without angina pectoris; I10 Essential (primary) hypertension; F41.9 Anxiety disorder, unspecified; F22 Delusional disorders; F10.10 Alcohol abuse, uncomplicated; E87.6 Hypokalemia; E83.42 Hypomagnesemia; Z82.49 Family history of ischemic heart disease and other diseases of the circulatory system; Z80.9 Family history of malignant neoplasm, unspecified

== ENCOUNTER 2018-01-01 18:10 | Inpatient (IN) | payer MEDICARE, OTHER ==
[2018-01-01] MEDS ORDERED: Magnesium Hydroxide Susp 30 ml UD PO PRN (18:51)
[2018-01-01] MEDS ORDERED: Alum-Mag Hydrox-Simethicone Susp (30 mL) PO PRN (18:51)
[2018-01-01 19:04] VITALS: O2SAT 98
--- NOTE | 2018-01-01 19:46 | PCM.BM ---
<Tiffanie Lindsey - Last Filed: 01/01/18 19:43> Treatment Plan Problems - Problems identified on initial assessmt INEFFECTIVE IND COPING Date Initiated: 01/01/18 Time Initiated: 19:00 Assessment reference: NA Status: Active Priority: 1 ANXIETY DISORDER Date Initiated: 01/01/18 Time Initiated: 19:00 Assessment reference: NA Status: Active Priority: 2 Treatment assets and liabiliti Patient Assests: cooperative, ADL independent, good support system, cognitively intact Patient Liabilities: live alone - Milieu Protocol Maintain good personal hygiene: daily Encourage regular showers, daily Remind patient to perform daily oral care, daily Assist patient to perform ADL's Maintain personal safety: every shift Educate patient to report safety concerns to staff, every shift Monitor environment for contraband/sharps Medication safety: Monitor for expected outcome, potential side effects: every shift, Assess barriers to learning: every shift, Assess readiness for medication education: every shift Discharge/Continuing Care - Education Needs Education Needs: Patient Medication, Patient Diagnosis/Disease Process, Patient Coping Skills, Patient Community resources, Patient Activities of Daily Living, Patient Nutrition, Patient Health Practices/Safety, Patient Personal Hygiene/ Grooming, Patient Aftercare Safety Plan - Discharge Discharge Criteria: Tolerates medication w/o severe side effects, Free of Suicidal thoughts, Normal sleep pattern, Ability to care for self, Reduction of target symptoms Discharge to:: Home <Zahida Light - Last Filed: 01/02/18 14:11> - Diagnosis (1) MDD (major depressive disorder) Status: Acute Interventions: 01/02/18 14:11 Psychoeducation Psychopharmacology/adjustment of medications as needed/ monitoring possible side effects Evaluate pt on daily basis Compliance with medications and follow up appointments Suicide and homicide risk assessment and prevention Relapse prevention Reduction of symptoms Improve functional status Family involvement As outpatient: cognitive behavioral therapy <Krystal Alarcon - Last Filed: 01/03/18 14:42>
[2018-01-02] MEDS: Pantoprazole 40 mg EC Tab PO SCH (06:36)
[2018-01-02] MEDS: Multivitamin With Minerals Tab PO SCH (07:55)
[2018-01-02 08:00] LABS: HDL CHOLESTEROL 59 mg/dL (29-60)
[2018-01-02 08:04] LABS: LDL CHOLESTEROL 109 mg/dL (0-129)
[2018-01-02 08:12] LABS: FREE T4 1.05 ng/dL (0.78-2.19)
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
[2018-01-03] MEDS: Levothyroxine 25 MCG TAB PO SCH (06:39)
[2018-01-03] MEDS: Pantoprazole 40 mg EC Tab PO SCH (06:39)
[2018-01-03] MEDS: Multivitamin With Minerals Tab PO SCH (09:27)
--- NOTE | 2018-01-03 12:48 | PN ---
Copied To: Pritesh Bahena MD Attending MD: Pritesh Bahena MD DATE: 01/03/2018 SUBJECTIVE: The patient is 67 years old, seen and examined, seems to be in good spirit, walking around, talking to other people. Seems to be more social today. PHYSICAL EXAMINATION: VITAL SIGNS: She is afebrile, pulse 61, respirations 20, blood pressure 126/78. LUNGS: Bilateral fair airflow. No rhonchi or crackle. HEART: S1 and S2 audible. ABDOMEN: Soft. Nontender. No rebound. No guarding. NEUROLOGICAL: She is awake, alert, oriented, communicative, ambulatory. LABORATORY EXAM: Her TSH is 6.37, otherwise her RPR is negative. ASSESSMENT: 1. Status post suicidal attempt. 2. Klonopin overdose. 3. Hypothyroidism. 4. Hypertension. 5. Anxiety disorder. PLAN: I will continue the patient on current medication. Thanks for consult. We will follow up with you. Continue on current regimen. Pritesh Bahena MD
--- NOTE | 2018-01-03 16:24 | PCM.PYCHPN ---
Psychiatric Progress Note - Psychiatric Progress Note Patient seen today, length of contact: 30min Patient Chief Complaint: "I do not remember asking about klonopin or meeting" Problems Identified/Issues Discussed: Suicide/ homicide prevention, past psychiatric h/o, current psychiatric symptoms , medical problems, risk/benefits and alternatives of medications, medications compliance, coping strategies, substance abuse h/o, relapse prevention, importance of follow up with psychiatrist and therapist, discharge plan. Medical Problems: see HPI pt is s/p overdose on seroquel Diagnostic Results: Lab Results 01/02/18 07:00: Triglycerides 94, Cholesterol 200, LDL Cholesterol Direct 109, HDL Cholesterol 59 01/02/18 07:00: Free T4 1.05, TSH 3rd Generation 6.37 H 01/02/18 07:00: RPR Nonreactive Vital Signs Temp Pulse Resp BP Pulse Ox 01/03/18 16:07 64 146/72 01/03/18 09:26 73 126/78 01/03/18 09:25 73 126/78 01/03/18 06:39 98.1 F 61 20 116/55 L 01/02/18 17:27 65 111/79 01/02/18 16:00 65 111/79 01/02/18 13:30 69 129/72 01/02/18 10:12 63 175/95 H 01/02/18 10:10 63 175/95 H 01/02/18 07:05 98.3 F 62 20 01/01/18 18:30 98.7 F 63 16 154/79 H 98 DSM 5 Symptoms Update: Shortly patient is 67 year old female, not known previous psychiatric history, history of anxiety, patient was under care or Dr. Robert at [facility], patient denied history of suicidal attempts, denied history of psychiatric admissions, initially patient was admitted to ICU status post overdose on Seroquel with intention of killing herself, which was related to the stress over the fact that her father was placed in hospice and her sister was "screaming and yelling at me". pt was medically stable, was downgraded to the medical site, was medically cleared for transfer to the psychiatric inpatient unit yesterday, transfer was uneventful. Please see initial consultation note for more detailed information. pt was seen and examined today at the treatment team meeting, patient presented with improved personal hygiene,, good ADLs. pt has difficulties to stay focused and concentrate, when talked to the SW asked about Klonopin, but when this proposal writer tried to address pt's request pt seems do not remember that she spoke to the SW about it. as per recreational therapist, pt was educated that she will be invited for the treatment team meeting, but pt did not remember being told that. pt seems to realize that her suicidal attempt was severe, pt said "I feel grateful to be alive", to compare on medical site "I am careless". discussed with neurologist, as per , pt does not have signs of dementia could be f/u as outpatient. pt reported to feel "little better", was able to work on safety plan "I would call my boyfriend in case I am in distress, if he is not available I could distract myself by music or meditation, then I don't know, ah, I know I will come to the hospital". as per staff pt is compliant with meds, no behavioral issues, but pt is forgetful, requires name written next to her room because pt was not able to learn where it is. pt tolerated meds well, no side effects observed or reported, AIMS 0, no EPS, pt complaint of mild somnolence at am. DSM 5 Diagnosis: r/o mdd r/o adjustment disorder with depressed and anxious mood\\ Medication Change: No (increased yesterday) Medical Record Reviewed: Yes Consults ordered or reviewed: pt was cleared by medical team d/w , no need to be f/u pt could be seen as outpatient Mental Status Examination - Cognitive Function Orientation: Person, Place, Situation Memory: Impaired Attention: Poor Concentration: Poor Association: WNL Fund of Knowledge: WNL - Mood Mood: Depressed - Affect Affect: Flat - Formal Thought Process Formal Thought Process: No Impairment - Suicidal Ideation Suicidal Ideation: No - Homicidal Ideation Homicidal Ideation: No Goal/Treatment Plan - Goal/Treatment Plan Need for Continued Stay: Remain at risks for inpatient hospitalization, Severe depression anxiety, Discharge may exacerbated symptoms, Severe functional impairment Progress Toward Problem(s) and Goals/Treatment Plan: Milieu/structure/supportive therapy Medical consult would be considered SW consultation for discharge plan and social issues Med management klonopin 0.5mg po tid for anxiety remeron 15mg po hs for depression and insomnia Family involvement Follow up on labs Will monitor closely Pt was educated about risk/benefits and alternatives of medications, coping strategies (safety plan, suicide prevention), relapse prevention, importance of follow up with psychiatrist and therapist, stay away from drugs/alcohol/smoking Estimated Date of D/C: 01/05/18
[2018-01-04] MEDS: Pantoprazole 40 mg EC Tab PO SCH (06:44)
[2018-01-04] MEDS: Levothyroxine 25 MCG TAB PO SCH (06:44)
[2018-01-04] MEDS: Multivitamin With Minerals Tab PO SCH (09:00)
--- NOTE | 2018-01-04 11:22 | PCM.PYCHPN ---
Psychiatric Progress Note - Psychiatric Progress Note Patient seen today, length of contact: 30min Patient Chief Complaint: "being as positive as possible" Problems Identified/Issues Discussed: I reviewed assessment and recent notes. I am familiar with patient from my two consultations with her this past weekend. She is appearing better. Her affect is more reactive and focus is improved. Patient is well-oriented to month, year , location and circumstances. She reports that she is feeling in better control and trying to be as positive as possible. She feels the medications are helping a little though still has some related grogginess. This is improving day to day. She is coherent and communicate needs well. Indicates that she is looking forward to discharge. She is aware of the family meeting planned for tomorrow and discharge plans to f/u at [facility]. Patient has been calm, cooperative and more visible on the unit. She appears depressed and reserved but not hopeless. She denies any SI. There have been no behavioral issues and I/J are improving. Diagnostic Results: r/o mdd r/o adjustment disorder with depressed and anxious mood\\ Medication Change: No (increased yesterday) Medical Record Reviewed: Yes Mental Status Examination - Cognitive Function Orientation: Person, Place, Situation Memory: Impaired Attention: Poor Concentration: Poor Association: WNL Fund of Knowledge: WNL - Mood Mood: Depressed ("being as positive as possible") - Affect Affect: Flat - Formal Thought Process Formal Thought Process: No Impairment - Suicidal Ideation Suicidal Ideation: No - Homicidal Ideation Homicidal Ideation: No Goal/Treatment Plan - Goal/Treatment Plan Need for Continued Stay: Remain at risks for inpatient hospitalization, Severe depression anxiety, Discharge may exacerbated symptoms, Severe functional impairment Progress Toward Problem(s) and Goals/Treatment Plan: * c/w current tx and plan * No new lab results noted today * Vitals reviewed and noted below: Selected Entries 01/04/18 01/04/18 07:23 09:00 Temperature 98.1 F Pulse Rate 58 L 61 Respiratory 18 Rate Blood Pressure 108/49 L 119/68 Estimated Date of D/C: 01/05/18
--- NOTE | 2018-01-04 12:30 | PN ---
Copied To: Pritesh Bahena MD Attending MD: Pritesh Bahena MD DATE: 01/04/2018 SUBJECTIVE: The patient is 67 years old, seen and examined, seems to be doing much better. More interactive. More social. Eating and tolerating, ambulating. PHYSICAL EXAMINATION: VITAL SIGNS: She is afebrile, pulse 50, respirations 18, blood pressure 119/68. LUNGS: Bilateral fair airflow. No rhonchi or crackle. HEART: S1 and S2 audible. ABDOMEN: Soft. Nontender. No rebound. No guarding. NEUROLOGICAL: The patient is awake, alert, oriented, communicative. ASSESSMENT: 1. Status post suicidal attempt. 2. Status post Klonopin overdose. 3. Hypothyroidism. 4. Hypertension. PLAN: We will continue the patient on current medication. Psych medication is being adjusted by the psychiatrist. She is on Klonopin 0.5 t.i.d. p.r.n. She is on metoprolol. Blood pressure seems to be controlled. We will follow up with you. Pritesh Bahena MD
[2018-01-05] MEDS: Levothyroxine 25 MCG TAB PO SCH (06:51)
[2018-01-05] MEDS: Pantoprazole 40 mg EC Tab PO SCH (06:51)
[2018-01-05 07:11] VITALS: RESP 20; TEMP 98.2
[2018-01-05] MEDS: Multivitamin With Minerals Tab PO SCH (07:56)
[2018-01-05 08:02] VITALS: BP 119/68; PULSE 52
--- NOTE | 2018-01-05 12:43 | PN ---
Copied To: Pritesh Bahena MD Attending MD: Pritesh Bahena MD DATE: 01/05/2018 SUBJECTIVE: The patient is 67 years old, seen and examined. Doing well. Was seen in family meeting. Being discharged today. She states she feels better than before. No more suicidal ideation. PHYSICAL EXAMINATION: VITAL SIGNS: She is afebrile, pulse 52, respirations 20, blood pressure . LUNGS: Bilateral fair airflow. No rhonchi or crackle. HEART: S1 and S2 audible. ABDOMEN: Soft. Nontender. No rebound. No guarding. NEUROLOGICAL: She is awake, alert, oriented, communicative, ambulatory. LABORATORY EXAM: TSH is 6.37. ASSESSMENT: 1. Status post suicidal attempt, status post Klonopin overdose. 2. Hypothyroidism. 3. Hypertension. 4. Tachycardia. PLAN: The patient is being discharged home today on folic acid 1 mg daily, Klonopin 0.5 three times a day, metoprolol 25 twice a day and amlodipine 5 mg daily. We can discontinue Protonix. We will continue on thiamine and levothyroxine. Pritesh Bahena MD
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
== END 2018-01-05 13:07 | disposition home or self-care (01) | DRG 881 ==
LOC: PSYC 18:10
PROVIDERS: ADMIT Psychiatry & Neurology Psychiatry; ATTEND Psychiatry & Neurology Psychiatry
DX: F32.9 Major depressive disorder, single episode, unspecified (principal); R47.01 Aphasia; E03.9 Hypothyroidism, unspecified; F03.90 Unspecified dementia, unspecified severity, without behavioral disturbance, psychotic disturbance, mood disturbance, and anxiety; F41.9 Anxiety disorder, unspecified; G47.00 Insomnia, unspecified; I11.0 Hypertensive heart disease with heart failure; I50.9 Heart failure, unspecified; R00.0 Tachycardia, unspecified; Z81.8 Family history of other mental and behavioral disorders; Z91.5 Personal history of self-harm